=== PATIENT | male | born 1945 | race Caucasian/White ===

== ENCOUNTER → 2024-03-13 09:31 | Outpatient (REF) | payer MEDICARE, OTHER, SELFPAY ==
[2024-03-13 11:20] LABS: % Basophils 0.5 % (0-2); % Eosinophils 1.7 % (0-6); % Immature Granulocytes 0.3 % (0-0.5); % Lymphocytes 26.9 % (20.5-51.1); % Monocytes 10.1 % (1.7-9.3); % Neutrophils 60.5 % (42.2-75.2); Absolute Eosinophils 0.1 10^3/uL (0-0.7); Absolute Lymphocytes 2.1 10^3/uL (1.2-3.4); Absolute Monocytes 0.8 10^3/uL (0.1-0.6); Absolute Neutrophils 4.6 10^3/uL (1.4-6.5); Hematocrit 42.3 % (39.0-52.0); Hemoglobin 13.6 g/dL (13.0-18.0); Mean Corp Hgb Conc. 32.2 g/dL (33.0-37.0); Mean Corpuscular Hgb 26.3 pg (27.0-31.0); Mean Corpuscular Volume 81.7 fL (80.0-94.0); Mean Platelet Volume 10.2 fL (7.4-10.4); Nucleated Red Blood Cells % 0 % (-); Platelet Count 254 10^3/uL (130-400); Red Blood Cell Count 5.18 10^6/uL (4.70-6.10); Red Cell Dist. Width 14.5 % (11.5-14.5); White Blood Cell Count 7.6 10^3/uL (4.8-10.8)
[2024-03-13 11:45] LABS: ALT (SGPT) 19 U/L (0-50); AST (SGOT) 22 U/L (17-59); Alkaline Phosphatase 57 U/L (38-126); Blood Urea Nitrogen 23 mg/dl (9-20); Calcium 9.4 mg/dl (8.4-10.2); Carbon Dioxide 26 mmol/L (22-30); Chloride 101 mmol/L (98-107); Glucose 97 mg/dl (70-99); HDL Cholesterol 41 mg/dl; LDL Cholesterol, Calculated 105 mg/dl; Potassium 4.3 mmol/L (3.5-5.1); Sodium 136 mmol/L (135-145); Total Bilirubin 1.2 mg/dl (0.2-1.3); Total Cholesterol 162 mg/dl (50-199); Total Protein 6.6 g/dl (6.3-8.2); Triglyceride 80 mg/dl (10-149); Very Low Density Lipoprotein 16 mg/dl (0-30); eGFR 55.19
[2024-03-13 12:10] LABS: TSH Reflex To Free T4 3.61 uIU/ml (0.47-4.68)
[2024-03-13 12:29] LABS: Glycohemoglobin (HgbA1c) 5.6 % (4.0-5.6)
== END ==
LOC: HWLAB 09:31
PROVIDERS: ATTENDING PHYSICIAN Internal Medicine
DX: E78.5 Hyperlipidemia, unspecified (principal); I10 Essential (primary) hypertension; R73.01 Impaired fasting glucose; K59.00 Constipation, unspecified
CPT/HCPCS: 36415; 80053; 80061; 83036; 84443; 85025

== ENCOUNTER → 2024-11-08 10:44 | Outpatient (REF) | payer MEDICARE, OTHER, SELFPAY ==
[2024-11-08 12:57] LABS: Hematocrit 42.1 % (39.0-52.0); Hemoglobin 13.6 g/dL (13.0-18.0); Mean Corp Hgb Conc. 32.3 g/dL (33.0-37.0); Mean Corpuscular Volume 79.1 fL (80.0-94.0); Nucleated Red Blood Cells % 0 % (-); Platelet Count 301 10^3/uL (130-400); Red Cell Dist. Width 14.7 % (11.5-14.5)
[2024-11-08 13:00] LABS: Blood Urea Nitrogen 24 mg/dl (9-20); Calcium 10.4 mg/dl (8.4-10.2); Carbon Dioxide 28 mmol/L (22-30); Chloride 98 mmol/L (98-107); Glucose 106 mg/dl (70-99); Magnesium 2.1 mg/dl (1.6-2.3); Potassium 4.5 mmol/L (3.5-5.1); Sodium 133 mmol/L (135-145); eGFR 50.49
== END ==
LOC: HWLAB 10:44
PROVIDERS: ATTENDING PHYSICIAN Internal Medicine
DX: R55 Syncope and collapse (principal); M17.10 Unilateral primary osteoarthritis, unspecified knee; I10 Essential (primary) hypertension
CPT/HCPCS: 36415; 80048; 83735; 85025

== ENCOUNTER → 2025-01-15 11:07 | Outpatient (REF) | payer MEDICARE, OTHER, SELFPAY | LOC: HWRCS 11:07 | PROVIDERS: ATTENDING PHYSICIAN Internal Medicine | DX: Z01.810 Encounter for preprocedural cardiovascular examination (principal); M17.10 Unilateral primary osteoarthritis, unspecified knee; M47.816 Spondylosis without myelopathy or radiculopathy, lumbar region; R79.89 Other specified abnormal findings of blood chemistry | CPT/HCPCS: 78452; 93017; A9500; J2785 ==

== ENCOUNTER → 2025-01-29 09:06 | Outpatient (REF) | payer MEDICARE, OTHER, SELFPAY ==
[2025-01-29 12:48] LABS: ALT (SGPT) 19 U/L (0-50); AST (SGOT) 23 U/L (17-59); Albumin 4.4 g/dl (3.5-5.0); Alkaline Phosphatase 56 U/L (38-126); Blood Urea Nitrogen 20 mg/dl (9-20); Calcium 9.7 mg/dl (8.4-10.2); Carbon Dioxide 28 mmol/L (22-30); Chloride 99 mmol/L (98-107); Glucose 90 mg/dl (70-99); Potassium 4.7 mmol/L (3.5-5.1); Sodium 137 mmol/L (135-145); Total Protein 7.2 g/dl (6.3-8.2); eGFR > 60.00
[2025-01-29 12:53] LABS: Hematocrit 44.7 % (39.0-52.0); Hemoglobin 13.7 g/dL (13.0-18.0); Mean Corp Hgb Conc. 30.6 g/dL (33.0-37.0); Mean Corpuscular Volume 83.1 fL (80.0-94.0); Nucleated Red Blood Cells % 0 % (-); Platelet Count 290 10^3/uL (130-400); Red Cell Dist. Width 14.3 % (11.5-14.5)
== END ==
LOC: HWRAD 09:06
PROVIDERS: ATTENDING PHYSICIAN Internal Medicine Interventional Cardiology; FAMILY PHYSICIAN Internal Medicine
DX: E78.5 Hyperlipidemia, unspecified (principal); I10 Essential (primary) hypertension
CPT/HCPCS: 36415; 80053; 85025

== ENCOUNTER 2025-01-30 10:21 | Inpatient (IN) | payer MEDICARE, OTHER, SELFPAY ==
[2025-01-30] VITALS (22 sets, daily range): BP systolic 121–181; BP diastolic 57–123; BMI 33.6
[2025-01-30] MEDS: LOW STRENGTH ASPIRIN 81 MG PO (07:17)
[2025-01-30] MEDS: NSS 328 ML IV (07:19)
--- NOTE | 2025-01-30 09:25 | ITS.CL.CATH ---
Slitter Operator - Catheterization
Cardiac Catheterization
Procedure Report:
LEFT HEART CATHETERIZATION
Date of Procedure: January 30, 2025
Referring: Dr. Philip Macedo
PROCEDURES:
1. Left heart catheterization with coronary and single-plane left ventriculography
INDICATION: This is an 79-year-old gentleman who was scheduled for elective knee replacement and had a stress study that was notable for anterior ischemia. He is now referred for coronary angiography.
ACCESS: Right radial artery using ultrasound guidance and placement of 6 Swedish sheath
HEMODYNAMICS : (mmHg)
AO (s/d) : 144/64, 100
LV (s/d) : 156/4
LVEDP : 14
CORONARY FINDINGS: Three-vessel coronary calcification
DOMINANCE: Right
LEFT MAIN: Calcified 70% distal stenosis with ventricularization of pressure tracing upon engagement
LEFT ANTERIOR DESCENDIN% ostial stenosis with post stenotic dilation. The remainder of the LAD has diffuse luminal irregularities
CIRCUMFLEX: The circumflex is a moderate caliber dominant vessel. There is a 95% calcified ostial stenosis best seen in UZBEK 31/caudal 30 image. OM1 is a moderate caliber vessel that arises very proximally from the circumflex and has an 80% ostial
stenosis. OM2 is small. The circumflex terminates in a large posterolateral branch
RIGHT CORONARY ARTERY: The right coronary artery is moderate to heavily calcified with diffuse 30% mid RCA stenosis and focal 60% mid RCA stenosis. The mid to distal vessel has diffuse luminal irregularities but no focal obstructive stenosis.
There is a 50% narrowing just before the crux and the vessel. The PDA has a 40% mid stenosis
VENTRICULOGRAPHY: Left ventriculography is performed in an ANTHONY projection. The digital single-plane left ventricular ejection fraction is visually estimated at 50%
SEDATION: 36 minutes of procedural sedation was utilized. An independent medical assistant secretary was present to assist with and help manage the patient's level of consciousness and physiologic status.
RADIATION SUMMARY: Fluoro Time (min): 2.6, Dose (mGy): 506, DAP (Gy.cm2) : 36.8
Closure Device: TR band
CONCLUSIONS
1. Multivessel coronary artery disease involving left main, ostial LAD and ostial circumflex and mid RCA. Moderate to heavy coronary calcification
2. Preserved LV function
RECOMMENDATIONS
1. Consult CT surgery to consider coronary artery bypass graft with targets to LAD, OM1, posterolateral branch, and RCA
Copy to: Dr. Philip Macedo
--- NOTE | 2025-01-30 10:23 | PTCARENOTE ---
patient transferred to IVU (2250) for surgical consult post cath. awake and alert with spouse at bedside. right radial band present, air deflation in progress, report given to Vicki ZENG.
--- NOTE | 2025-01-30 10:28 | PTCARENOTE ---
Received patient from the systems testing laboratory technician, assisted to the bathroom and voided qs. Right radial band is dry and intact with a strong pulse, 3ml of air removed as ordered. Patient oriented to the room and plan of care, at the bedside, call cordoba in
reach.
--- NOTE | 2025-01-30 11:52 | CONSULT.CT ---
Consultation
-
Date/Time Consultation Requested: 01/30/25 at 0922
Date/Time Consultation Performed: 01/30/25 at 1150
Requesting Provider: TAWNYA Sequeira
Performing Provider: TAWNYA Ramos for Dr. Eloy Martinez
Reason for Consultation: CABG evaluation
Patient History
Physicians
Family Physician: Dr. Jenny Patel
Outpatient Orchard Worker: Dr. Philip Smith
Inpatient Orchard Worker: [facility]
History of Present Illness
Mr. Brad Mcdaniels is an 79-year-old male with a PMHx of HTN, HLD and prior orthopedic procedures who presented today for [facility] following abnormal stress test revealing anterior ischemia. Patient reported he underwent a stress test to attain cardiac
clearance prior to undergoing an orthopedic surgery on his right knee. His last TTE (08/31/14) reported LVEF 55-60%, moderate LVH, mild MR, mild TR with mild PHT (PASP 35-40, RA pressure 5-10), mildly dilated aorta measuring 3.7 cm at sinus of
Valsalva and proximal ascending aorta is 3.5 cm. An updated TTE is ordered and awaiting to be obtained. Today, [facility] (01/30/25) with Dr. Luis reported multivessel CAD involving LM, ostial LAD, and ostial circumflex and mid RCA with moderate to heavy
coronary calcification and preserved LV function. Cardiothoracic surgery was consulted in consideration for CABG.
Due to his right knee discomfort, Mr. Mcdaniels reports that his mobility has been limited over the last 6-months. He reports an average of 1K steps per day. He is independent with his ADL's and still drives regularly. He intermittently will use a
single point cane due to his R knee discomfort, but not routinely. He denies any history of chest pain, chest tightness, shortness of breath, orthopnea, dyspnea, ABD distention, edema, or palpitations. He reports he has had a prior syncopal episode
2-years ago during a which led to a 2-day hospitalization at [facility]. He reported at that time, he was fasting on a keto-diet which he attributed to be the cause. He reporting establishing care with Dr. Smith at that time in
which his blood pressure medication was decreased and no other syncope has occurred.
Past Medical History
Past Medical History: HTN and Hypercholesterolemia
Past Surgical History
Past Surgical History: Orthopedic ( )
R Elbow Fx - ORIF (2009)
R Rotator cuff tear (2009)
L2-5 Laminectomy, L1-L2 Hemilaminectomy, Facetectomy Left L2-L3 Redo Laminectomy, Redo Discectomy L (2018, Dr. Irving Meehan)
Bilateral Cataract
Family History
Mother: at Age (70's) and Cause of (Bladder Ca)
Father: at Age (90's) and Cause of (Alzheimer's Disease)
Social History
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
Drug: None
Tobacco: Former Smoker (1-2 ppd for 20 years, quit in 40's)
Personal:
Living: With Spouse
Allergies
Allergy/AdvReac Type Severity Reaction Status Date / Time
Penicillins Allergy Hives/swell Verified 02/15/18 06:25
ing
Home Medications
�Medication �Instructions �Recorded �Confirmed �Type
amlodipine 2.5 mg tablet 2.5 mg PO DAILY 01/30/25 01/30/25 History
aspirin 81 mg tablet,delayed 81 mg PO DAILY 01/30/25 01/30/25 History
release
irbesartan 150 mg tablet 150 mg PO DAILY 01/30/25 01/30/25 History
simvastatin 40 mg tablet 40 mg PO DAILY 01/30/25 01/30/25 History
Review of Systems
-
History Source: Patient
General: Reports No Symptoms
HEENT: Reports No Symptoms
Respiratory: Reports No Symptoms
Cardiac: Reports No Symptoms
Abdomen/GI: Reports No Symptoms
: Reports No Symptoms
Musculoskeletal: Reports Joint Pain (R knee)
Skin: Reports No Symptoms
Neurological: Reports No Symptoms
Vascular: Reports No Symptoms
Physical Exam
Vital Signs
Temp 97.7 F 01/30/25 10:30
Temp route: Oral 01/30/25 10:30
Pulse 54 01/30/25 11:30
Resp Rate 16 01/30/25 10:30
Blood pressure 134/66 01/30/25 11:13
Blood pressure extremity used: Left upper arm 01/30/25 10:30
Position: Lying 01/30/25 10:30
MAP (cuff-Asim Monitor) 86 01/30/25 11:13
SaO2 100 01/30/25 11:30
Oxygen Mode of Delivery Room air 01/30/25 10:30
Can the patient verbally communicate their pain? Yes 01/30/25 10:57
Actual Weight 109.2 kg 01/30/25 06:39
Body Mass Index (BMI) 33.6 01/30/25 06:39
Exam
General: Well Developed and Well Nourished
HEENT: Normocephalic, Atraumatic and EOMI
Respiratory: Clear
Cardiac: S1/S2
GI: Soft, Non Tender and Non Distended
Skin: Warm and Dry
Neuro: AO x 3
Extremities: Pulses (+2 DP/PT/Radial Bilaterally)
Psych: Calm
Assessment / Plan
-
#Coronary Artery Disease
- Pt presented for elective LHC following abnormal outpatient stress test, found to have multivessel CAD
- CTS consulted for CABG evaluation
- Surgical case will be discussed and reviewed with attending physician, Dr. Eloy Martinez. Further details regarding surgical timing will be determined after surgeons full evaluation.
- Routine preoperative cardiothoracic surgery orders will be, including:
- CT Chest
- Carotid Artery Ultrasound
- Bedside PFT's
- Labwork, including Type & Screen
- Anesthesia Consult
- STS risk stratification score will be calculated after preoperative testing is complete.
- Continue medical management per primary team.
--- NOTE | 2025-01-30 13:45 | CM ---
Chart reviewed. Patient is independent of ADLS, lives with his in a 3 [address], 2 [facility], ambulates with a SPC due to a bad knee. Reviewed preoperative and postoperative instructions and restrictions, along with showering guidelines. Gave patient
Cardiac Surgery Book. Patient is agreeable to a home visit by CT Transitional RN. Plan is for the patient to return home with CT Transitional RN. CM to follow
--- NOTE | 2025-01-30 15:38 | W.PN.UPDATE ---
Update Note
Progress Note Update
CARDIAC SURGERY ATTENDING:
It was my pleasure to evaluate Mr. Brad Mcdaniels for surgical coronary revascularization. I have reviewed his cardiac catheterization images as well as his medical history and other preoperative studies. I believe he will benefit from surgical
coronary revascularization. I anticipate JERZY to LAD, greater saphenous vein to OM1, greater saphenous vein to terminal L PLB, and greater saphenous vein to RPDA. I recommended concurrent exclusion of his left atrial appendage. I had a long
conversation with this patient and his family. We reviewed his pathology, discussed the proposed operative interventions, reviewed the periprocedural risks (including, but not limited to, , stroke, CO, arrhythmia, PNA, JAY/F, bleeding, and
infection), discussed expected in-hospital postprocedural course, and reviewed the expected outpatient recovery. All questions were answered to the best of my abilities. The patient is agreeable to proceed. He has been tentatively scheduled for
his procedure tomorrow 01/31/2025.
Thank you for the opportunity participate in the care of this kind gentleman.
Please call with any questions or concerns.
Eloy Martinez MD
[phone]
--- NOTE | 2025-01-30 16:46 | PTCARENOTE ---
Patient now scheduled for CT surgery tomorrow. Patient seen by anesthesia and surgeon. Sent for CT of the chest and U/S, now having echo. BP elevated TT to [place] Peace ACUPUNCTURIST, now that norvasc and avapro were placed on hold by surgery. She will discuss
with Dr. Luis but no plans for heparin gtt as per Dr. Luis. Patient sent for echo. Dressing right wrist is dry and intact, patient denies any pain, family waiting in the room.
[2025-01-30 16:56] LABS: APTT 29.1 Sec (23.4-35.0); INR 0.94; PT 12.9 Sec (11.4-14.6)
[2025-01-30] MEDS: LIPITOR 80 MG PO (17:46)
--- NOTE | 2025-01-30 18:01 | W.PN.UPDATE ---
Update Note
Progress Note Update
Procedure Type:�Isolated CABG
Perioperative Outcome Estimate %
Operative Mortality 1.34%
Morbidity & Mortality 5.84%
Stroke 0.479%
Renal Failure 0.93%
Reoperation 1.72%
Prolonged Ventilation 3.15%
Deep Sternal Wound Infection 0.123%
Long Hospital Stay (>14 days) 3.98%
Short Hospital Stay (<6 days)* 46.4%
*higher values reflect a better outcome
Clinical Summary
Planned Surgery: Isolated CABG, Urgent, First cardiovascular surgery
Demographics: 79 year old, male, 109kg, 180cm, BMI: 33.6 kg/m�
Lab Values: Creatinine: 1.2 mg/dL, Hematocrit: 44%, WBC Count: 9.2 10�/�L, Platelet Count: 033750 cells/�L
PreOp Medications: JENNIFER Inhibitors/ARBs <=48 hrs
Substance Abuse: Former smoker
Risk Factors / Comorbidities: Hypertension
Pulmonary RF: Mild CLD
�
--- NOTE | 2025-01-30 19:30 | PTCARENOTE ---
Received pt @ change of shift. AAOx3, BP 165/62, other VSS-- NSR on monitor. Right radial site clean, dry, and intact. No ecchymosis, swelling or hematoma present. Family bedside. Discussed plan of care. Pt verbalizes understanding. Call cordoba within
reach.
--- NOTE | 2025-01-30 21:49 | PTCARENOTE ---
CVOR prep completed. Pt arms, chest, stomach, groins, legs front and back to ankles clipped. CHG bath completed. Sheets changed, bedside, rails and call cordoba wiped down. Informed RADHA Moulton, that prep was completed-- verified
preparation. Discussed plan of care for morning, and being NPO @ midnight. PT verifies understanding. Call cordoba within reach.
[2025-01-30] MEDS: APRESOLINE 10 MG IV (22:24)
[2025-01-31] VITALS (18 sets, daily range): BP systolic 94–164; BP diastolic 45–126; BMI 32.8
--- NOTE | 2025-01-31 02:58 | DOWNTIME ---
There was a [employer] Client Technology Program Manager Downtime on 01/31/2025 from 0100 to 01/31/2025 at 0255. Downtime documentation of patient's care, including medication administrations, has been reconciled in the electronic record per guidelines. Refer to the
patient's paper chart under the miscellaneous tab to see printed paper medication records and downtime forms.
[2025-01-31 05:21] LABS: Hematocrit 39.5 % (39.0-52.0); Hemoglobin 13.0 g/dL (13.0-18.0); Mean Corp Hgb Conc. 32.9 g/dL (33.0-37.0); Mean Corpuscular Volume 79.8 fL (80.0-94.0); Platelet Count 251 10^3/uL (130-400); Red Cell Dist. Width 14.2 % (11.5-14.5)
[2025-01-31] MEDS: LOPRESSOR 25 MG PO (06:07)
[2025-01-31 06:08] LABS: ALT (SGPT) 18 U/L (0-50); AST (SGOT) 21 U/L (17-59); Albumin 3.8 g/dl (3.5-5.0); Alkaline Phosphatase 60 U/L (38-126); Blood Urea Nitrogen 18 mg/dl (9-20); Calcium 9.3 mg/dl (8.4-10.2); Carbon Dioxide 24 mmol/L (22-30); Chloride 105 mmol/L (98-107); Estimated Creatinine Clearance 60 ml/min; Glucose 95 mg/dl (70-99); HDL Cholesterol 37 mg/dl; LDL Cholesterol, Calculated 89 mg/dl; Potassium 4.3 mmol/L (3.5-5.1); Sodium 132 mmol/L (135-145); Total Protein 6.6 g/dl (6.3-8.2); Very Low Density Lipoprotein 18 mg/dl (0-30); eGFR > 60.00
[2025-01-31] MEDS: PROTONIX 40 MG PO (06:09)
[2025-01-31] MEDS: BACTROBAN 2% OINTMENT 1 APPLIC NASAL ×2 (06:09→21:22)
[2025-01-31] MEDS: MAGNESIUM OXIDE 400 MG PO (06:09)
--- NOTE | 2025-01-31 06:42 | PTCARENOTE ---
Pre-op prep completed. Bloodwork completed. Weight measured. Vitals taken, Bilat pressures. 2nd CHG bath completed. CHG wipes completed. Monitor leads placed on back. Switched to CVICU bed. CVOR Handoff report/SBAR completed. Belongings brought to
2261. Medications given-- see MAY. Antibiotics held and sent (Vancocin and Aztreonam). Equipment from CVICU on bed with oxygen tank, ambu bag, and chart-- includes H&P, anesthesia consult, signed consent, copies of tests, two namebands, and CVOR
SBAR included.. Seen by Dr. Martinez.
[2025-01-31 07:43] LABS: ACT+ - POC 109 Seconds (82-134)
[2025-01-31 07:53] LABS: Urine Character Slightly Cloudy (Clear)
[2025-01-31 08:08] LABS: Urine Red Blood Cell 0-2 /HPF (0-2)
[2025-01-31 08:46] LABS: Glycohemoglobin (HgbA1c) 5.5 % (4.0-5.9)
[2025-01-31 10:07] LABS: ACT+ - POC 692 Seconds (82-134)
[2025-01-31 10:27] LABS: B.E. - POC -2.0 mmol/L; Glucose - POC 104 mg/dl (70-99); HCO3 - POC 23 mmol/L (21-28); Hematocrit - POC 34 % PCV (42-52); Hemodilution- POC No; Hemoglobin Calculated - POC 11.4; Ionized Calcium - POC 1.24 mmol/L (1.15-1.33); Lactate - POC 0.39 mmol/L (0.36-0.75); O2 Saturation %Calculated-POC 99.9 % (94-98); PCO2 - POC 39 mmHg (35-48); PO2 - POC 279 mmHg (83-108); POC Comment PRE; Potassium - POC 3.9 mmol/L (3.5-5.1); Sodium - POC 135 mmol/L (136-145); Specimen Type - POC Arterial; pH - POC 7.38 (7.35-7.45)
[2025-01-31 10:37] LABS: ACT+ - POC 619 Seconds (82-134)
[2025-01-31 10:55] LABS: B.E. - POC 1.0 mmol/L; Glucose - POC 129 mg/dl (70-99); HCO3 - POC 25 mmol/L (21-28); Hematocrit - POC 31 % PCV (42-52); Hemodilution- POC Yes; Hemoglobin Calculated - POC 10.4; Ionized Calcium - POC 1.07 mmol/L (1.15-1.33); Lactate - POC 0.89 mmol/L (0.36-0.75); O2 Saturation %Calculated-POC 100.0 % (94-98); PCO2 - POC 39 mmHg (35-48); PO2 - POC 409 mmHg (83-108); POC Comment CPB; Potassium - POC 5.5 mmol/L (3.5-5.1); Sodium - POC 134 mmol/L (136-145); Specimen Type - POC Arterial; pH - POC 7.43 (7.35-7.45)
[2025-01-31 11:04] LABS: ACT+ - POC 487 Seconds (82-134)
[2025-01-31 11:18] LABS: ACT+ - POC 635 Seconds (82-134)
[2025-01-31 11:30] LABS: B.E. - POC 0.1 mmol/L; Glucose - POC 161 mg/dl (70-99); HCO3 - POC 24 mmol/L (21-28); Hematocrit - POC 31 % PCV (42-52); Hemodilution- POC Yes; Hemoglobin Calculated - POC 10.4; Ionized Calcium - POC 1.11 mmol/L (1.15-1.33); Lactate - POC 0.87 mmol/L (0.36-0.75); O2 Saturation %Calculated-POC 99.8 % (94-98); PCO2 - POC 37 mmHg (35-48); PO2 - POC 224 mmHg (83-108); POC Comment CPB; Potassium - POC 5.6 mmol/L (3.5-5.1); Sodium - POC 135 mmol/L (136-145); Specimen Type - POC Arterial; pH - POC 7.43 (7.35-7.45)
[2025-01-31 11:38] LABS: ACT+ - POC 505 Seconds (82-134)
[2025-01-31 11:51] LABS: B.E. - POC -2.7 mmol/L; Glucose - POC 121 mg/dl (70-99); HCO3 - POC 22 mmol/L (21-28); Hematocrit - POC 31 % PCV (42-52); Hemodilution- POC Yes; Hemoglobin Calculated - POC 10.7; Ionized Calcium - POC 1.08 mmol/L (1.15-1.33); Lactate - POC 1.07 mmol/L (0.36-0.75); O2 Saturation %Calculated-POC 99.9 % (94-98); PCO2 - POC 36 mmHg (35-48); PO2 - POC 312 mmHg (83-108); POC Comment WARM; Potassium - POC 4.5 mmol/L (3.5-5.1); Sodium - POC 138 mmol/L (136-145); Specimen Type - POC Arterial; pH - POC 7.39 (7.35-7.45)
[2025-01-31 12:02] LABS: ACT+ - POC 584 Seconds (82-134)
[2025-01-31 12:38] LABS: B.E. - POC -0.8 mmol/L; Glucose - POC 123 mg/dl (70-99); HCO3 - POC 23 mmol/L (21-28); Hematocrit - POC 32 % PCV (42-52); Hemodilution- POC Yes; Hemoglobin Calculated - POC 10.9; Ionized Calcium - POC 1.12 mmol/L (1.15-1.33); Lactate - POC 1.63 mmol/L (0.36-0.75); O2 Saturation %Calculated-POC 99.9 % (94-98); PCO2 - POC 36 mmHg (35-48); PO2 - POC 278 mmHg (83-108); POC Comment WARM; Potassium - POC 4.8 mmol/L (3.5-5.1); Sodium - POC 138 mmol/L (136-145); Specimen Type - POC Arterial; pH - POC 7.42 (7.35-7.45)
[2025-01-31 12:44] LABS: ACT+ - POC 109 Seconds (82-134)
[2025-01-31 12:54] LABS: B.E. - POC -4.1 mmol/L; Glucose - POC 121 mg/dl (70-99); HCO3 - POC 20 mmol/L (21-28); Hematocrit - POC 29 % PCV (42-52); Hemodilution- POC Yes; Hemoglobin Calculated - POC 9.7; Ionized Calcium - POC 1.22 mmol/L (1.15-1.33); Lactate - POC 1.94 mmol/L (0.36-0.75); O2 Saturation %Calculated-POC 99.8 % (94-98); PCO2 - POC 34 mmHg (35-48); PO2 - POC 217 mmHg (83-108); POC Comment POST; Potassium - POC 4.2 mmol/L (3.5-5.1); Sodium - POC 138 mmol/L (136-145); Specimen Type - POC Arterial; pH - POC 7.39 (7.35-7.45)
--- NOTE | 2025-01-31 13:07 | W.CVOR.SURPR ---
CVOR Surgeon Immed Pre Op
-
I have examined this patient prior to performance of the scheduled procedure.
The patient's condition is unchanged from the time of the dictated/written History and
Physical and the patient is able to undergo the scheduled procedure.
--- NOTE | 2025-01-31 13:07 | W.IMMPOSTOP ---
Addendum entered and electronically signed by Eloy Martinez MD 01/31/25 14:31:
[id number]
Original Note:
Surgical Immed Post Op Note
-
CARDIAC SURGERY OPERATIVE NOTE:
Preoperative Dx:
MVCAD including LM disease
Postoperative Dx:
Same
Procedures:
1) Median sternotomy
2) Takedown of JERZY (narrow pedicle)
3) Endoscopic harvest/prep of RLE GSV
4) CABG x 4 (JERZY to LAD, GSV to D1, GSV to LPLB, GSV to RPDA)
5) ELAA (35mm AtriClip)
Surgeon:
Eloy Martinez M.D.
Assistants:
Dangelo CalixtoAFranky-CFranky; printing assistant throughout, [id number] sternotomy closure
Dangelo MadridA.-CFranky; endoscopic harvest/prep of RLE GSV, closure of RLE incisions, [id number] sternotomy closure
Caprice Schwarz.-CFranky; assisted w/ endoscopic RLE GSV harvest
Anesthesia:
James Roberts M.D. and Aura GonzalezN.A.
Perfusion:
Mana Cotton, C.C.P.; CPB: 131min, XC: 83min
Findings:
JERZY was a very healthy and good sized vessel (ELD 3.25mm) w/ extremely brisk blood flow
GSV was a healthy conduit w/ ELD 3.5mm
LAD was visible on the epicardial surface, scant scattered calcifications, normal gutierrez at midpoint anastomotic site, ELD 3.00mm
D1 was visible on the epicardial surface, it covered an anterior lateral distribution, scant scattered calcifications, ELD 2.75mm
L PLB was visible on the epicardial surface, scant scattered calcifications, slightly thickened gutierrez, ELD 3.25mm
R PDA was visible on the epicardial surface, scant scattered calcifications, normal gutierrez, ELD 2.50mm
OM1 was intramyocardial and not significantly calcified making identification challenging - it appeared to be running in a similar course as D1 - bypass not performed
CHERRI was small w/ 'windsock' morphology - successfully occluded at its base w/ a 35mm AtriClip - confirmed w/ postoperative AUSTYN
Excellent flow in all grafts w/ postoperative transit-time U/S flow-probe assessment
Post-AUSTYN: Normal biventricular function, no significant VHD, CHERRI confirmed excluded
Pt. w/ preoperative sinus bradycardia in 40s under GA, postoperatively continued bradycardia in 30s - bipolar V-wire placed - paced at 70.
Complications:
None
Transfusions:
None
Implants:
35mm AtriClip - LOT [id number]
Epicardial bipolar V-wire x 1
CT x 4 (B/L pleural, inferior mediastinal, superior mediastinal)
Sternal wires x 8
Sternal 'X' plate w/ 8 - 14mm screws
Sternal 'Square' plate w/ 4 - 12mm screws
Condition:
71 V-paced (bradycardic sinus under), 109/63, CVP 20, 100%
GTTS: insulin 1, levophed 3, precedex 0.5
Stable/guarded to CVICU
[2025-01-31] MEDS: TYLENOL PO (13:10)
[2025-01-31] MEDS: NEURONTIN PO ×2 (13:10→15:07)
[2025-01-31 13:55] LABS: Glucose - Point of Care 129 mg/dl (70-99)
[2025-01-31 14:04] LABS: Hematocrit 34.0 % (39.0-52.0); Hemoglobin 11.5 g/dL (13.0-18.0); Platelet Count 213 10^3/uL (130-400)
[2025-01-31] MEDS: AZACTAM 2000 MG IV ×2 (14:06)
[2025-01-31] MEDS: STERILE WATER FOR INJECTION 10 ML IV ×2 (14:06)
[2025-01-31] MEDS: NSS 500 IV (14:06)
[2025-01-31 14:09] LABS: B.E. -3.4 mmol/L; HCO3 21.4 mmol/L (21-28); O2 Saturation % 98.4 % (94-98); PCO2 37 mmHg (35-48); PO2 89 mmHg (83-108); Potassium 4.5 mMOL/L (3.5-5.1); Sodium 134 mMOL/L (136-145)
[2025-01-31 14:11] LABS: INR 1.28; PT 16.5 Sec (11.4-14.6)
[2025-01-31 14:12] LABS: APTT 30.1 Sec (23.4-35.0)
[2025-01-31 14:21] LABS: Blood Urea Nitrogen 17 mg/dl (9-20); Estimated Creatinine Clearance 65 ml/min; Glucose 127 mg/dl (70-99); Magnesium 3.0 mg/dl (1.6-2.3)
--- NOTE | 2025-01-31 14:22 | CM ---
Chart reviewed. Patient is in the OR today. Patient is independent of ADLS, lives with his in a 3 STH, 2 [place], ambulates with a SPC 2/2 his knee. Plan is for the patient to return home with CT Transitional RN. CM to follow
--- NOTE | 2025-01-31 14:36 | PTCARENOTE ---
Patient received from CVOR s/p CABG x 4/LAAL. RIJ Cordis w/SLIC catheter, transducing CVP, L radial arterial lines present - leveled, flushed, and calibrated w/good waveforms returned. Epicardial V-wire, placed to back up rate 30bpm. Mediastinal
chest tubes x 2, Y-connected to pleurevac, L and R pleural chest tubes, Y-connected to separate collection chamber - both placed to -20cm suction w/no air leaks appreciated. Hutchison catheter to gravity. All procedural sites stable. JAMIL Whittaker to
bedside, updated to appearance of RSVG site, states unchanged from prior. See work list for full assessment, interventions performed, and intravenous infusion rates and titrations.
--- NOTE | 2025-01-31 14:56 | CON.INTV ---
Consultation
Consultation Request
Date/Time Consultation Requested: 01/31/2025
Date/Time Consultation Performed: 01/31/2025
Medical History
-
Chief Complaint: CAD
History of Present Illness:
Patient is 79-year-old gentleman with history of hypertension and hyperlipidemia who had an abnormal stress test as an outpatient. This was followed by left heart catheterization which was suggestive of multivessel coronary artery disease. Patient
was subsequently referred to cardiothoracic surgery and was advised to pursue coronary artery bypass graft. Patient was admitted to the hospital for elective coronary artery bypass graft and postprocedure was admitted to cardiovascular ICU.
Duplex Trimmer consultation was requested for further input.
Past Medical History
Past Medical History: HTN and Hypercholesterolemia
Past Surgical History
Past Surgical History: Orthopedic ( )
R Elbow Fx - ORIF (2009)
R Rotator cuff tear (2009)
L2-5 Laminectomy, L1-L2 Hemilaminectomy, Facetectomy Left L2-L3 Redo Laminectomy, Redo Discectomy L (2018, Dr. Irving Meehan)
Bilateral Cataract
Family History
Mother: at Age (70's) and Cause of (Bladder Ca)
Father: at Age (90's) and Cause of (Alzheimer's Disease)
Social History
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
Drug: None
Tobacco: Former Smoker (1-2 ppd for 20 years, quit in 40's)
Personal:
Living: With Spouse
Allergies / Home Medications
Allergies
Allergy/AdvReac Type Severity Reaction Status Date / Time
Penicillins Allergy Hives/swell Verified 02/15/18 06:25
ing
Home Medications
�Medication �Instructions �Recorded �Confirmed �Last Taken �Type
amlodipine 2.5 mg tablet 2.5 mg PO DAILY Blood Pressure 01/30/25 01/30/25 01/29/25 10:00 History
aspirin 81 mg tablet,delayed 81 mg PO DAILY Blood Clot 01/30/25 01/30/25 01/29/25 10:00 History
release Prevention/Tx
irbesartan 150 mg tablet 150 mg PO DAILY Blood Pressure 01/30/25 01/30/25 01/29/25 10:00 History
simvastatin 40 mg tablet 40 mg PO DAILY High Cholesterol 01/30/25 01/30/25 01/29/25 10:00 History
Review of Systems
-
Unable to Obtain full review of systems at this time due to: Patient Intubation
Vitals / Labs / Diagnostic Testing
Vital Signs
Temp Pulse Resp BP Pulse Ox
97.5 F 55 16 164/65 97
01/31/25 14:00 01/31/25 14:00 01/31/25 14:00 01/31/25 06:08 01/31/25 14:33
Lab Data
01/31/25 13:53
Laboratory Results
01/30/25 01/31/25
16:35 13:53
PT 12.9 16.5 H
INR 0.94 1.28
APTT 29.1 30.1
pH 7.37
pCO2 37
pO2 89
HCO3 21.4
O2 Delivery Level Not Reportable
Diagnostic Testing:
Physical Exam
-
HEENT: Normocephalic
Cardiovascular: S1/S2
Respiratory: Clear and Non-Labored Respirations
GI: Soft and Non Distended
Neurology: Other (Sedated on Precedex)
Skin: Warm
General: Comfortable
Assessment
-
79-year-old gentleman with multivessel coronary artery disease, s/p coronary artery bypass graft and left atrial appendage exclusion, POD # 0
Titrate off pressors per protocol, blood pressure 118/54, currently on Levophed at 2.
ECHO reviewed with normal systolic function.
Management of chest tubes per primary service
Intubated/sedated, initiate SAT when able
Pain control
RASS goal of 0 to -1
Intubated for procedure, SBT trial when patient able to spontaneously breath
Current vent settings: SIMV, 500/16/40%/5, pressure support of 5. Current respiratory rate 16. Saturating 96%. Work of breathing normal.
AB.30
CXR with no obvious opacities/infiltrates, no pneumothorax.
Extubate per protocol
Maintain supplement oxygen as needed
No prior known history of pulmonary disease
Spirometry reviewed, unremarkable
Can add nebulizers if needed
Aspiration precautions
Encouraged incentive spirometry, OOB/ambulation/early mobility
Advance diet as tolerated following extubation
GI prophylaxis: Protonix
Monitor critical I/O's
Hutchison/chest tube output
Hb/platelets postoperatively, mild drift
Trend CBC for now
Can transfuse if indicated for Hb <7, plt <50 in surgical patients
DVT prophylaxis including SCDs
Insulin protocol initiated and ongoing
Transition to SQ/off as indicated per team
Other medical diagnoses:
- HTN
- HLD
Critical Care time [61] mins -- The patient is admitted for acute critical illness for the treatment of vital organ failure and/or prevention of further life-threatening conditions. Total care includes time spent in review of history, physical exam,
medications, hemodynamic/ventilator parameters, laboratory data, imaging and discussion with house staff, pharmacy, respiratory therapy, lead military analyst, and nursing
Data:
Spirometry 01/2025: Normal spirometry without evidence of obstruction or restriction, FEV1 94%.
ECHO 01/2025: 1. Normal left ventricular size and function. No regional wall motion abnormalities. The estimated ejection fraction is 59% by Kapoor's method of disc. Normal diastolic function.
2. Trileaflet aortic valve. The aortic valve is sclerotic but not stenotic. No aortic insufficiency.
3. Trace mitral valve regurgitation.
4. Trace tricuspid regurgitation.
5. When compared to the most recent echocardiogram from 08/31/2014 there has been no significant change.
C 01/2025: 1. Multivessel coronary artery disease involving left main, ostial LAD and ostial circumflex and mid RCA. Moderate to heavy coronary calcification
2. Preserved LV function
Lexiscan 01/2025: Abnormal stress test
Negative ECG for ischemia given the pharmacological study.
Moderate sized apical, mid anterior mid anteroseptal defect predominantly reversible which may be consistent with ischemia
Systolic function is normal. The ejection fraction is 58%.
Stress Risk is moderate risk study (1 - 3% [place] or /year)
CT Chest 01/2025: Mild dependent atelectasis in the posterior lungs. The lungs appear otherwise clear.
Mild to moderate calcification of the aortic arch and descending thoracic aorta with no aneurysm.
Coronary artery calcifications.
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
Bony degenerative changes as described.
[2025-01-31 14:59] LABS: Glucose - Point of Care 158 mg/dl (70-99)
[2025-01-31] MEDS: DILAUDID 0.5 MG IV (15:03)
[2025-01-31] MEDS: PACERONE PO (15:07)
[2025-01-31] MEDS: OFIRMEV 100 IV (15:49)
[2025-01-31 16:00] LABS: Glucose - Point of Care 118 mg/dl (70-99)
[2025-01-31] MEDS: LR 250 ML IV ×3 (16:25→19:31)
[2025-01-31] MEDS: ZOFRAN 4 MG IV (16:44)
[2025-01-31 17:01] LABS: Glucose - Point of Care 115 mg/dl (70-99)
[2025-01-31] MEDS: LIPITOR PO (17:06)
[2025-01-31 17:08] LABS: B.E. -2.9 mmol/L; HCO3 22.0 mmol/L (21-28); O2 Saturation % 99.2 % (94-98); PCO2 38 mmHg (35-48); PO2 151 mmHg (83-108); Potassium 4.7 mMOL/L (3.5-5.1)
[2025-01-31] MEDS: ROXICODONE 5 MG PO (17:22)
--- NOTE | 2025-01-31 17:22 | RESPNOTE ---
pt extubated at 1715 to 6L nasal cannula, 02 sats of 100% noted
--- NOTE | 2025-01-31 17:25 | PTCARENOTE ---
Patient displayed spontaneous breaths above ventilator settings. CPAP wean initiated. No apnea noted, good TV maintained. ABG sent, results conveyed to EDEL Emmett. Patient extubated to 6lnc w/out incident, SaO2 @ 99%.
--- NOTE | 2025-01-31 17:27 | W.PN.CARDCBS ---
Today's Communication / Plan
-
Postop care
Impression / Plan
-
Parking Meter Collector: Hellen
Assessment:
Abnormal stress test
MV CAD
CABG x 4 (01/31/25 JERZY to LAD, GSV to D1, GSV to LPLB, GSV to RPDA) and ELAA
HTN
HLD
Assessment:
-Underwent left heart catheterization 01/30/2025 which was performed for abnormal stress test and showed multivessel coronary disease
-Patient subsequently underwent CABG x 4 on 01/31/25
-Postop he was seen in the CVICU where he was intubated and sedated
-Maintaining sinus rhythm on review of telemetry
-Warm and well-perfused on physical exam
-Normal LVEF based on IntraOp AUSTYN
-Agree with current cardiac meds�aspirin/Plavix, high intensity statin, beta-bin and amiodarone to maintain sinus rhythm
-Eventual cardiac rehab
Progress Note - Parking Meter Collector
Subjective
Date of Service: January 31, 2025
Underwent CABG earlier today. Seen postoperatively in the CVICU where he remains intubated and sedated.
Objective
Labs:
01/31/25 13:53
Labs
Hgb 11.5 g/dL (13.0-18.0) L 01/31/25 13:53
Hct 34.0 % (39.0-52.0) L 01/31/25 13:53
Plt Count 213 10^3/uL (130-400) 01/31/25 13:53
PT 16.5 Sec (11.4-14.6) H 01/31/25 13:53
INR 1.28 01/31/25 13:53
APTT 30.1 Sec (23.4-35.0) 01/31/25 13:53
Sodium 132 mmol/L (135-145) L 01/31/25 05:03
Potassium 4.3 mmol/L (3.5-5.1) 01/31/25 05:03
BUN 17 mg/dl (9-20) 01/31/25 13:53
Creatinine 1.1 mg/dL (0.7-1.3) 01/31/25 13:53
Glucose 127 mg/dl (70-99) H 01/31/25 13:53
Vital Signs and I&O:
Vital Signs
Temp Pulse Resp BP Pulse Ox
97.7 F 59 18 112/54 99
01/31/25 17:00 01/31/25 17:02 01/31/25 17:00 01/31/25 17:00 01/31/25 17:02
Vital Signs
Temp Pulse Resp BP Pulse Ox
97.7 F 59 18 112/54 99
01/31/25 17:00 01/31/25 17:02 01/31/25 17:00 01/31/25 17:00 01/31/25 17:02
Intake & Output
01/29/25 01/30/25 01/31/25 02/01/25
06:59 06:59 06:59 06:59
Intake Total 1080 / 1080 134.5 / 134.5
Output Total 200 / 200 465 / 465
Balance 880 / 880 -330.5 / -330.5
Physical Exam
Physical Exam
Gen: NAD
HEENT: NC/AT, sclera anicteric
Neck: No JVD
CV: RRR, NL s1/s2, no M/R/G
Lungs: Mechanically ventilated. Chest tubes with sanguineous drainage.
Abd: S/ND
: Hutchison with tao urine.
Ext: No LE edema
Skin: Warm, dry. Sternotomy CDI.
Neuro: Non-focal
[2025-01-31 18:04] LABS: Glucose - Point of Care 115 mg/dl (70-99)
[2025-01-31] MEDS: FLEXERIL 5 MG PO (18:12)
[2025-01-31 18:23] LABS: Hematocrit 36.0 % (39.0-52.0); Hemoglobin 12.1 g/dL (13.0-18.0); Platelet Count 269 10^3/uL (130-400)
[2025-01-31] MEDS: LOW STRENGTH ASPIRIN 81 MG PO (19:03)
[2025-01-31 19:59] LABS: B.E. -2.3 mmol/L; HCO3 22.5 mmol/L (21-28); O2 Saturation % 99.3 % (94-98); PCO2 38 mmHg (35-48); PO2 110 mmHg (83-108); Potassium 4.7 mMOL/L (3.5-5.1)
[2025-01-31 20:00] LABS: Glucose - Point of Care 106 mg/dl (70-99)
--- NOTE | 2025-01-31 20:00 | PTCARENOTE ---
Report received from KARRI Flores. Walking rounds done at 191. Pt drowsy yet easily arouses to voice. Speech clear. Oriented x 4. Equal strength x 4 to simple commands, yet generally weak. Pt on 4L/NC. Sats 99%. BBS present. Decreased to B bases and
anteriorly throughout. Pt in SB, rate 50's. Levo gtt at 3 mcg/min. Maintaining MAP > 65, SBP 90-130 mmHG. Audible heart tones. V wire to temporary pacer, VVI rate 30, mA 15, sens 0.8. Weak, yet palpable pulses to B radials and DPs. CT x 4, to -20 cm
suction. Sanguinous drainage. No air leak, no tidaling, no crepitus. For wound assessments, see flowsheets. Belly soft, nontender. Hypoactive bs x 4. ASA given as ordered. See MAY. Hutchison draining clear, yellow urine. Hourly urine and CT outputs
recorded. Glycemic protocol maintained.
At ~ 1925, pt heart rate down to 38-40's. SBP down to 75. Attempted to V pace pt at 50, yet SBP to 60's. PA at bedside. Levo gtt up to 4 mcg/min. LR 250 mls given per order. Pt her back to SB 50's intrinsically. See VS flowsheet. ABG and
MVO2 sent per order of JAMIL Rodriguez. Results also seen by PA. Pt stated he felt he was having nausea briefly. Received Zofran 4 mg IV at 1645. and son, Will, at bedside. Updated on pt status. Ongoing plan of care.
[2025-01-31] MEDS: SENOKOT PO (21:22)
[2025-01-31] MEDS: COMPAZINE 10 MG IV (21:34)
[2025-01-31] MEDS: DILAUDID 0.25 MG IV (22:11)
--- NOTE | 2025-01-31 22:15 | PTCARENOTE ---
Levo gtt was titrated down to 2 mcg/min at 2108. At ~2115, pt HR 40's, BP trending downwards: 108/42. Pt remains awake, talking. States he feels 'sick to his stomach'. Levo up to 3 mcg, then 4 mcg/min. PA at bedside. Compazine 10 mg IV ordered and
given. See MAY. Levo gtt back down to 3 mcg/min at 2119 for SBP 140, MAP 81. Pt repositioned in bed. C/O 9/ sternal pain. Dilaudid 0.25 mg IV given at 2210 for sternal pain.
[2025-01-31 22:25] LABS: Glucose - Point of Care 110 mg/dl (70-99)
[2025-02-01] VITALS (44 sets, daily range): BP systolic 68–148; BP diastolic 52–106; PULSE 71; O2SAT 96; BMI 33.4
[2025-02-01] LABS: Glucose - Point of Care 111 mg/dl (70-99)
[2025-02-01] MEDS: NEURONTIN 100 MG PO ×4 (00:30→21:44)
[2025-02-01] MEDS: TYLENOL 975 MG PO ×3 (00:30→21:45)
[2025-02-01] MEDS: VANCOCIN 200 IV ×2 (00:43→13:02)
[2025-02-01 02:16] LABS: Glucose - Point of Care 125 mg/dl (70-99)
--- NOTE | 2025-02-01 02:30 | PTCARENOTE ---
Levo gtt off at 0204 for BP 133 systolic, MAP 71. At ~0223 Levo gtt resumed at 1 mcg due to BP down to 103/39 (57) off levo gtt via L radial A-line. Discussed with JAMIL Rodriguez. HR noted to be 48-50 bpm, SR. Levophed gtt resumed at 1 mcg/min at 0223.
Current BP via A line 122/44 (64). BP via R upper arm cuff: 116/57 (74). HR SB, rate 48-60's (SR).
[2025-02-01 04:03] LABS: Glucose - Point of Care 111 mg/dl (70-99)
[2025-02-01 04:11] LABS: Hematocrit 34.0 % (39.0-52.0); Hemoglobin 10.7 g/dL (13.0-18.0); Mean Corp Hgb Conc. 31.5 g/dL (33.0-37.0); Mean Corpuscular Volume 81.1 fL (80.0-94.0); Platelet Count 217 10^3/uL (130-400); Red Cell Dist. Width 14.4 % (11.5-14.5)
[2025-02-01 04:36] LABS: Blood Urea Nitrogen 22 mg/dl (9-20); Calcium 8.6 mg/dl (8.4-10.2); Carbon Dioxide 23 mmol/L (22-30); Chloride 108 mmol/L (98-107); Estimated Creatinine Clearance 60 ml/min; Glucose 109 mg/dl (70-99); Magnesium 2.6 mg/dl (1.6-2.3); Potassium 4.7 mmol/L (3.5-5.1); Sodium 133 mmol/L (135-145); eGFR > 60.00
[2025-02-01] MEDS: LR 250 ML IV (04:38)
[2025-02-01] MEDS: DILAUDID 0.25 MG IV (05:23)
[2025-02-01 06:43] LABS: Glucose - Point of Care 109 mg/dl (70-99)
--- NOTE | 2025-02-01 06:50 | PTCARENOTE ---
Labs drawn and sent this am. EKG done, shown to PA. CXR done. Discussed labs with PA. SLIC d/c'ed per order. PA instructed RN to get pt OOB as tolerated. Pt to sitting position. Cuff BP 104/50's. No dizziness/lightheadedness. Pt helped to standing
with 3 RNs. Able to stand on scale. When getting into chair, pt felt weak. BP dropped to 68 systolic, HR 50, SB. Pt reclined in chair. Levo gtt started at 4 mcg/min. BP up to 78, then 100's, increasing to 120's systolic. Pt remained awake, talking
through entire transfer. Dr. Martinez in to see pt and aware of hypotension when sitting in chair. Levo gtt titrated down to 2 mcg/min. BP now 128/58 via cuff, and 125/37 via A-line. Pt on 4L/NC. Sats 96%. Will give shift report to Ramiro ZENG.
[2025-02-01] MEDS: TYLENOL PO (06:59)
--- NOTE | 2025-02-01 07:02 | W.PN.CT ---
Today's Communication / Plan
-
-pod #1
-no significant issues overnight, brief vagal episode with bradycardia high 30s
-mVO2 is 66.8. Drips: Insulin only. Levo is off at 5 pm
-CT outputs: 2 meds 100/200, 2 pleur 120/215 in 12/24 hrs
-deline
-d/c insulin
-d/c Hutchison
-current meds (ASA, Plavix, Lipitor, Protonix). Holding BB and Amio d/t bradycardia
-encourage IS, OOB
Assessment / Plan
-
- MVCAD including LM disease- s/p CABG x 4 (JERZY to LAD, GSV to D1, GSV to LPLB, GSV to RPDA); ELAA (35mm AtriClip) by Dr. Martinez on 01/31/25, pod #1
- Post-AUSTYN: Normal biventricular function, no significant VHD, CHERRI confirmed excluded
- Pt. w/ preoperative sinus bradycardia in 40s under GA, postoperatively continued bradycardia in 30s - bipolar V-wire placed - paced at 70.
- HTN/HLD
- R elbow fx, s/p ORIF 2009
- R rotator cuff tear 2009
- L1-L2 hemilaminectomy, L2-L5 laminectomy/redo laminectomy L2-L3
- Discectomy [address] Irving Meehan
- b/l cataract
- Former smoker
- Sober since 30s
- Acute postop blood loss anemia
- Acute postop atelectasis
- Acute postop hypovolemia with subsequent hypervolemia
Discussed patient care with: Nursing and Care Team
Subjective
-
Date of Service: February 01, 2025
Objective Data
-
PT 16.5 Sec (11.4-14.6) H 01/31/25 13:53
INR 1.28 01/31/25 13:53
APTT 30.1 Sec (23.4-35.0) 01/31/25 13:53
Vital Signs
Vital Signs
Temp Pulse Resp BP Pulse Ox
98.7 F 56 18 110/52 97
01/31/25 23:00 01/31/25 23:02 01/31/25 23:02 01/31/25 23:00 01/31/25 23:02
CT Intake/Output/Weight
01/31/25 01/31/25 02/01/25
06:59 18:59 06:59
Intake Total 168.1 / 327.9 159.8 / 327.9
Output Total 565 / 890 325 / 890
Balance -396.9 / -562.1 -165.2 / -562.1
SaO2: 97
Physical Exam
-
General: Awake and AOx3
Cardiovascular: Regular rate & rhythm, Murmur and Rub
Respiratory: Decreased Breath Sounds
Sternum: Stable
Incision: Clean, Dry and Intact
Extremities: No Edema
Data Reviewed
-
Lab Results: Results Reviewed
Medications: Active Meds Reviewed
Chest X-Ray: Report Reviewed and Image Reviewed
ECG: Report Reviewed and Image Reviewed
--- NOTE | 2025-02-01 07:23 | W.PN.ANS.POP ---
Anesthesia Post Operative
- Anesthesia Post Op Note
Vital Signs Stable-See Nursing Note: Yes (Patient on norepinephrine at low dose)
Airway Patent: Yes (Extubated to NC and OOB to chair)
Adequate Pain Control: Yes
Change in Mental Status: No
Current Postoperative Nausea & Vomiting: No
Anesthesia Complications: No
General Anesthetic Recall: No
Unplanned Admission: No
Post Op Hydration Adequate: Yes
--- NOTE | 2025-02-01 08:25 | W.PN.INTV ---
Addendum entered and electronically signed by Greg Gil MD 02/01/25 15:56:
- Patient transferred out of CVICU, wastewater treatment engineer service will sign off, please call as needed.
Original Note:
Today's Communication / Plan
Recommendations
- Continue to wean Levophed as tolerated
- Incentive spirometry
- Patient will benefit from sleep study as outpatient, information added to discharge section
Assessment
-
79-year-old gentleman with multivessel coronary artery disease, s/p coronary artery bypass graft and left atrial appendage exclusion, POD # 0
Titrate off pressors per protocol, currently on Levophed at 1, MAP of 64.
ECHO reviewed with normal systolic function.
Management of chest tubes per primary service
Patient extubated, currently saturating 97% on 4 L supplemental oxygen. No respiratory distress.
CXR with slightly progressed left lower lobe atelectasis, continue incentive spirometry
No prior known history of pulmonary disease
Spirometry reviewed, unremarkable
Can add nebulizers if needed
Aspiration precautions
Encouraged incentive spirometry, OOB/ambulation/early mobility
Advance diet as tolerated following extubation
GI prophylaxis: Protonix
Monitor critical I/O's
Hutchison/chest tube output
Hb/platelets postoperatively, mild drift
Trend CBC for now
Can transfuse if indicated for Hb <7, plt <50 in surgical patients
DVT prophylaxis including SCDs
Insulin protocol initiated and ongoing
Transition to SQ/off as indicated per team
Other medical diagnoses:
- HTN
- HLD
- History of cigar use, patient quit close to 10 years ago. No pulmonary symptoms reported
- Suspect patient for sleep disordered breathing. Patient will benefit from sleep study as outpatient. Reports sleepiness during daytime as well as frequent naps. Reported history of snoring at night. Follow-up information added to discharge
section.
Critical Care time [36] mins -- The patient is admitted for acute critical illness for the treatment of vital organ failure and/or prevention of further life-threatening conditions. Total care includes time spent in review of history, physical exam,
medications, hemodynamic/ventilator parameters, laboratory data, imaging and discussion with house staff, pharmacy, respiratory therapy, cloth checker, and nursing
Data:
Spirometry 01/2025: Normal spirometry without evidence of obstruction or restriction, FEV1 94%.
ECHO 01/2025: 1. Normal left ventricular size and function. No regional wall motion abnormalities. The estimated ejection fraction is 59% by Kapoor's method of disc. Normal diastolic function.
2. Trileaflet aortic valve. The aortic valve is sclerotic but not stenotic. No aortic insufficiency.
3. Trace mitral valve regurgitation.
4. Trace tricuspid regurgitation.
5. When compared to the most recent echocardiogram from 08/31/2014 there has been no significant change.
LHC 01/2025: 1. Multivessel coronary artery disease involving left main, ostial LAD and ostial circumflex and mid RCA. Moderate to heavy coronary calcification
2. Preserved LV function
Lexiscan 01/2025: Abnormal stress test
Negative ECG for ischemia given the pharmacological study.
Moderate sized apical, mid anterior mid anteroseptal defect predominantly reversible which may be consistent with ischemia
Systolic function is normal. The ejection fraction is 58%.
Stress Risk is moderate risk study (1 - 3% CA or /year)
CT Chest 01/2025: Mild dependent atelectasis in the posterior lungs. The lungs appear otherwise clear.
Mild to moderate calcification of the aortic arch and descending thoracic aorta with no aneurysm.
Coronary artery calcifications.
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
Bony degenerative changes as described.
Subjective Dataa
Subjective Data
Date of Service:
Date of Service: February 01, 2025
Subjective:
Patient extubated, comfortably sitting in chair in no acute distress
Review of Systems
Genitourinary: Other (No new symptoms reported)
Objective Data
Data Reviewed
Vital Signs / I&O / Oxygen:
Vital Signs
Temp Pulse Resp BP Pulse Ox
98.4 F 62 18 128/58 94
02/01/25 05:15 02/01/25 06:46 02/01/25 06:46 02/01/25 06:37 02/01/25 06:46
Intake and Output
01/31/25 02/01/25 02/02/25
06:59 06:59 06:59
Intake Total 1080 / 1080 1193.3 / 1193.3
Output Total 200 / 200 1340 / 1340
Balance 880 / 880 -146.7 / -146.7
SaO2 [CPAP] 99
SaO2 [SIMV] 98
SaO2 94
Nasal Cannula flow liters per 3
minute
Physical Exam
General: Comfortable
HEENT: Normocephalic
Cardiovascular: S1-S2
Respiratory: Clear and Non-Labored Respirations
GI: Soft and Non Distended
Neurology: Awake and Alert
Skin: Warm
Labs/Micro/Reports
Lab Data
02/01/25 03:37
02/01/25 03:37
Laboratory Results
01/31/25 01/31/25 01/31/25
13:53 16:59 19:37
PT 16.5 H
INR 1.28
APTT 30.1
pH 7.37 7.37 7.38
pCO2 37 38 38
pO2 89 151 H 110 H
HCO3 21.4 22.0 22.5
O2 Delivery Level Not Reportable
--- NOTE | 2025-02-01 08:58 | PN.CDI ---
CDI
- -
CDI:
Physician Documentation Request
Admit Date: 01/30/25 10:21
Dear Doctor/ CVPA,
Please review the following and provide your response in the progress notes.
Clinical Indicators:
Pt admitted with CAD for cardiac cath now s/p CABG on 01/31
Sodium levels are as below/Pt did get IVFs LR
Laboratory Tests
01/31/25 02/01/25
05:03 03:37
Sodium 132 L 133 L
Based on the above, could you clarify in the progress notes, the appropriate diagnosis, if significant, that supports the above abnormalities and additional evaluation, monitoring and/or treatment rendered:
Hyponatremia
Abnormal lab value only
Other ( please specify)
Use of terms such as suspected, likely, concern for, or probable (associated with a specific diagnosis that is being evaluated, monitored, or treated as if it exists) are acceptable and can be coded in the inpatient setting, when documented at the
time of discharge.
Thank you,
Joy Charles RN
CDI Specialist
[employer]
Please use your independent medical judgment in providing your response.
[2025-02-01 08:59] LABS: Glucose - Point of Care 104 mg/dl (70-99)
[2025-02-01] MEDS: LIDOCAINE 4% PATCH 1 PATCH TOPICAL (09:03)
[2025-02-01] MEDS: LOW STRENGTH ASPIRIN 81 MG PO (09:04)
[2025-02-01] MEDS: MAGNESIUM OXIDE 400 MG PO (09:05)
[2025-02-01] MEDS: SENOKOT 8.6 MG PO ×2 (09:05→21:44)
[2025-02-01] MEDS: PLAVIX 75 MG PO (09:05)
[2025-02-01] MEDS: PROTONIX 40 MG PO (09:06)
[2025-02-01] MEDS: FLEXERIL 5 MG PO (09:30)
[2025-02-01] MEDS: BACTROBAN 2% OINTMENT 1 APPLIC NASAL ×2 (09:31→21:43)
--- NOTE | 2025-02-01 11:21 | PTCARENOTE ---
PT AAOx4 in chair, Levo is off, When pt stood BP dropped to 70's and HR to 50's Pt recovered quickly when sat in chair and CT surgery notified
--- NOTE | 2025-02-01 11:36 | CM ---
Chart reviewed. Patient OOB sitting in the chair, family at bedside. Patient is independent of ADLS, lives with his in a [address], [facility], ambulates with a SPC. Planis for the patient to return home with CT Transitional RN. CM to follow
--- NOTE | 2025-02-01 12:09 | W.PN.CARDCBS ---
Addendum entered and electronically signed by Bibiana Moctezuma MD 02/01/25 16:36:
I saw and examined the patient.
The Teaseler's note was reviewed and I agree with the note.
Comment: Sitting in the chair with family at the bedside. Vagal event with some dizziness noted earlier today. Continue to follow blood pressure. Caution with changing position. Vital signs currently stable. Telemetry has been stable. EKG and
exam consistent with pericarditis. No significant unusual symptoms noted. Continue to follow. Some lower extremity edema noted.
Status post CABG x 4
Normal left ventricular ejection fraction 55 to 60%.
- Continue usual postop care.
- Continue aggressive risk factor modification.
- Caution with changing position.
- Follow telemetry and labs.
Discussed with nursing and family.
Original Note:
Today's Communication / Plan
-
continue post op care
in SR
Impression / Plan
-
Diversified Crops Farmworker: Hellen
Assessment:
Abnormal stress test
MV CAD
CABG x 4 (JERZY to LAD, GSV to D1, GSV to LPLB, GSV to RPDA) and ELAA 01/31/25
HTN
HLD
Assessment:
-Underwent left heart catheterization 01/30/2025 which was performed for abnormal stress test and showed multivessel coronary disease
-Patient subsequently underwent CABG x 4 on 01/31/25
-extubated overnight and sitting out of bed to chair at present
-off pressors
-had vagal episode overnight and some dizziness again this AM. will follow. holding amio/BB for now
-in SR on review of tele. EKG 02/01 with evidence of pericarditis, follow
-hgb 10.7. continue asa, plavix
-LDL on 01/31 was 89. continue high intensity statin
-continue post op care
-d/w nursing. d/w at bedside
Progress Note - Diversified Crops Farmworker
Subjective
Date of Service: February 01, 2025
reported some dizziness with getting up this AM.
Objective
Labs:
02/01/25 03:37
02/01/25 03:37
Labs
Hgb 10.7 g/dL (13.0-18.0) L 02/01/25 03:37
Hct 34.0 % (39.0-52.0) L 02/01/25 03:37
Plt Count 217 10^3/uL (130-400) 02/01/25 03:37
PT 16.5 Sec (11.4-14.6) H 01/31/25 13:53
INR 1.28 01/31/25 13:53
APTT 30.1 Sec (23.4-35.0) 01/31/25 13:53
Sodium 133 mmol/L (135-145) L 02/01/25 03:37
Potassium 4.7 mmol/L (3.5-5.1) 02/01/25 03:37
BUN 22 mg/dl (9-20) H 02/01/25 03:37
Creatinine 1.2 mg/dL (0.7-1.3) 02/01/25 03:37
Glucose 109 mg/dl (70-99) H 02/01/25 03:37
Vital Signs and I&O:
Vital Signs
Temp Pulse Resp BP Pulse Ox
98.2 F 68 22 122/55 97
02/01/25 08:00 02/01/25 11:10 02/01/25 11:10 02/01/25 11:00 02/01/25 11:10
Vital Signs
Temp Pulse Resp BP Pulse Ox
98.2 F 68 22 122/55 97
02/01/25 08:00 02/01/25 11:10 02/01/25 11:10 02/01/25 11:00 02/01/25 11:10
Intake & Output
01/30/25 01/31/25 02/01/25 02/02/25
07:59 07:59 07:59 07:59
Intake Total 1080 / 1080 1319.1 / 1331.1 48
Output Total 200 / 200 1340 / 1355 55 / 55
Balance 880 / 880 -20.9 / -23.9 -7 / -7
Physical Exam
Physical Exam
GEN: No distress, awake, alert, oriented x3. sitting in chair. on supp O2
HEENT: supple, anicteric, mmm, eomi
LUNGS: CTA B/L, no wheezes
CV: Reg, S1/S2, no murmur
ABD: soft, ND
EXT: No cyanosis, clubbing. trace edema of B/L LE
NEURO: Gross non-focal
SKIN: Warm, pink, dry. No rash. Sternotomy dressing c/d/i. CTs in place
: darrell
[2025-02-01] MEDS: NSS IV (12:54)
--- NOTE | 2025-02-01 13:51 | PTCARENOTE ---
VS WNL, pt was holding breath when standing so educated pt on proper body mechanics and tips for standing post op and is not longer light headed while getting up
[2025-02-01 14:58] LABS: Glucose - Point of Care 94 mg/dl (70-99)
[2025-02-01 14:58] LABS: Glucose - Point of Care 106 mg/dl (70-99)
[2025-02-01] MEDS: PACERONE 200 MG PO (15:58)
--- NOTE | 2025-02-01 16:22 | PTCARENOTE ---
Pt VS WNL was able to wean off oxygen, Nhi is D/C'ed, Pt worked with PT and walked no episodes of being lightheaded
[2025-02-01] MEDS: LIPITOR 80 MG PO (17:48)
[2025-02-01] MEDS: LOPRESSOR 12.5 MG PO (21:44)
[2025-02-01] MEDS: REMOVE LIDOCAINE PATCH 1 PATCH REMOVE (21:44)
[2025-02-01] MEDS: ROXICODONE 5 MG PO (21:45)
--- NOTE | 2025-02-01 22:00 | PTCARENOTE ---
Report at shift change from KARRI Rubio. Walking rounds done. Pt in chair. VS done. Pt assessed. Assisted to bed with 2 RNs. Pt awake, alert, oriented x 4. Speech clear. Equal strength x 4. Pt on room air in chair. Sats 92%. Increased to 4L/NC in bed.
Sats 97-98%. BBS present. Decreased B bases. CDB, IS encouraged. CT x 4, all to -20 cm suction. No air leak, tidaling, or crepitus. Dressing changed done per protocol. Audible heart tones. Pt in SR, 70-80 bpm. Metoprolol 12.5 mg given after
discussing with PA. V wire insulated-near temp PM in case of emergency. Normotensive. See flowsheets for pulse and wound assessments. Marc wrap taken off RLE. Belly soft, nontender. Normoactive bs x 4. Hutchison with clear, yellow urine. Oxycodone 5 mg
given at 2145 for 4/10 sternal pain. CHG bath done. Ongoing plan of care. Family home for evening.
--- NOTE | 2025-02-01 23:36 | W.PN.CT ---
Today's Communication / Plan
-
-pod #2
-no issues overnight
-no drips
-BB and Amio resumed, monitor for bradycardia
-follow Cr (1.2 preop)- 1.3 today
-wt is up 10 lbs- diurese
-follow Na - 131 today
-[address] outputs: 2 meds 80/160, 2 pleur 60/145 in 12/24 hrs
-encourage IS, OOB
Assessment / Plan
-
- MVCAD including LM disease- s/p CABG x 4 (JERZY to LAD, GSV to D1, GSV to LPLB, GSV to RPDA); ELAA (35mm AtriClip) by Dr. Martinez on 01/31/25, pod #2
- Post-AUSTYN: Normal biventricular function, no significant VHD, CHERRI confirmed excluded
- Pt. w/ preoperative sinus bradycardia in 40s under GA, postoperatively continued bradycardia in 30s - bipolar V-wire placed - paced at 70.
- HTN/HLD
- R elbow fx, s/p ORIF 2009
- R rotator cuff tear 2009
- L1-L2 hemilaminectomy, L2-L5 laminectomy/redo laminectomy L2-L3
- Discectomy [address] Irving Meehan
- b/l cataract
- Former smoker
- Sober since 30s
- Acute postop blood loss anemia
- Acute postop atelectasis
- Acute postop hypovolemia with subsequent hypervolemia
- Acute postop hyponatremia
Discussed patient care with: Nursing and Care Team
Subjective
-
Date of Service: February 01, 2025
Objective Data
-
Lab Results
02/01/25 03:37
02/01/25 03:37
PT 16.5 Sec (11.4-14.6) H 01/31/25 13:53
INR 1.28 01/31/25 13:53
APTT 30.1 Sec (23.4-35.0) 01/31/25 13:53
Vital Signs
Vital Signs
Temp Pulse Resp BP Pulse Ox
98.1 F 75 18 138/59 98
02/01/25 21:28 02/01/25 21:45 02/01/25 21:45 02/01/25 21:44 02/01/25 21:45
CT Intake/Output/Weight
02/01/25 02/01/25 02/02/25
06:59 18:59 06:59
Intake Total 1025.2 / 1319.1 725.0 / 755.0 30 / 755.0
Output Total 775 / 1340 415 / 630 215 / 630
Balance 250.2 / -20.9 310.0 / 125.0 -185 / 125.0
SaO2: 98
Physical Exam
-
General: Awake and AOx3
Cardiovascular: Regular rate & rhythm, No Murmurs and No Rub
Respiratory: Decreased Breath Sounds
Sternum: Stable
Incision: Clean, Dry and Intact
Extremities: Edema +1 (hands and feet b/l. 2+ DPs b/l)
Abdomen: soft, nontender, nondistended, + bowel sounds
Data Reviewed
-
Lab Results: Results Reviewed
Medications: Active Meds Reviewed
Chest X-Ray: Report Reviewed and Image Reviewed
ECG: Report Reviewed and Image Reviewed
[2025-02-02] VITALS (24 sets, daily range): BP systolic 105–146; BP diastolic 54–109; PULSE 66–67; O2SAT 95–96; BMI 34.2
[2025-02-02] MEDS: PACERONE 200 MG PO ×4 (00:32→21:46)
[2025-02-02] MEDS: FLEXERIL 5 MG PO (02:36)
--- NOTE | 2025-02-02 02:40 | PTCARENOTE ---
Pt repositioned in bed. C/O pain to CT sites. Flexeril 5 mg po given at 0236.l
[2025-02-02] MEDS: DILAUDID 0.25 MG IV (04:32)
--- NOTE | 2025-02-02 04:42 | PTCARENOTE ---
Labs drawn and sent. Pt c/o persistent lower sternal, CT site pain, and upper back pain. Dilaudid 0.25 mg IV given at 0432.
[2025-02-02 05:01] LABS: Hematocrit 30.4 % (39.0-52.0); Hemoglobin 9.6 g/dL (13.0-18.0); Mean Corp Hgb Conc. 31.6 g/dL (33.0-37.0); Mean Corpuscular Volume 82.2 fL (80.0-94.0); Platelet Count 178 10^3/uL (130-400); Red Cell Dist. Width 14.5 % (11.5-14.5)
[2025-02-02 05:37] LABS: Blood Urea Nitrogen 26 mg/dl (9-20); Calcium 8.1 mg/dl (8.4-10.2); Carbon Dioxide 26 mmol/L (22-30); Chloride 102 mmol/L (98-107); Estimated Creatinine Clearance 56 ml/min; Glucose 115 mg/dl (70-99); Magnesium 2.3 mg/dl (1.6-2.3); Potassium 4.4 mmol/L (3.5-5.1); Sodium 131 mmol/L (135-145); eGFR 55.19
[2025-02-02] MEDS: TYLENOL 975 MG PO ×3 (06:47→21:45)
--- NOTE | 2025-02-02 07:20 | PTCARENOTE ---
Pt helped to scale then chair this am - 2 RN assist. VS stable. HR 70's, SR. States pain is better after Dilaudid 0.25 mg IV. Report to KARRI Flores.
--- NOTE | 2025-02-02 07:53 | PTCARENOTE ---
Patient received from weight shifter resting oob in chair, AAO X 3, c/o moderate sternal and chest tube discomfort, medicated for such (see MAR). NSR via cm, SaO2 @ 97% on 2lnc. RIJ Cordis w/kvo infusing. Epicardial V-wire, tied to pulse generator, set
to 30bpm. Mediastinal chest tubes x 2, Y-connected to one pleurevac, L and R chest tubes Y'd to separate collection chamber - both to -20cm suction w/no air leaks noted. Hutchison catheter to gravity. All procedural sites stable. Patient demonstrates
I.S. to 750-1000ml. Patient updated to plan of care for the day, in agreement. See work list for full assessment and interventions performed.
[2025-02-02] MEDS: NEURONTIN 100 MG PO ×3 (08:09→21:45)
[2025-02-02] MEDS: BACTROBAN 2% OINTMENT 1 APPLIC NASAL ×2 (08:09→20:27)
[2025-02-02] MEDS: PLAVIX 75 MG PO (08:09)
[2025-02-02] MEDS: LOW STRENGTH ASPIRIN 81 MG PO (08:09)
[2025-02-02] MEDS: LIDOCAINE 4% PATCH 1 PATCH TOPICAL (08:09)
[2025-02-02] MEDS: ROXICODONE 5 MG PO ×2 (08:10→21:46)
[2025-02-02] MEDS: SENOKOT 8.6 MG PO ×2 (08:10→20:26)
[2025-02-02] MEDS: LOPRESSOR 12.5 MG PO ×2 (08:10→20:26)
[2025-02-02] MEDS: PROTONIX 40 MG PO (08:11)
[2025-02-02] MEDS: LASIX 40 MG IV ×2 (08:11→15:39)
--- NOTE | 2025-02-02 11:00 | PTCARENOTE ---
Cannot verify accuracy of captured vital signs prior to 1100.
[2025-02-02] MEDS: CORDARONE 103 MG IV (11:55)
[2025-02-02] MEDS: CORDARONE 259 MG IV ×2 (12:08→21:42)
[2025-02-02] MEDS: NSS IV (13:37)
--- NOTE | 2025-02-02 14:17 | W.PN.CARDCBS ---
Addendum entered and electronically signed by Bibiana Moctezuma MD 02/02/25 16:02:
I saw and examined the patient.
The Gallery Intern's note was reviewed and I agree with the note.
Comment: Laying in bed. No current complaints. Atrial fibrillation noted with rapid ventricular response. He remains asymptomatic. No further vagal events. Blood pressure stable.
Status post CABG x 4 with normal left ventricular ejection fraction. Status post 35mm atrial clip. By transesophageal echocardiogram left atrial appendage was excluded.
- Agree with amiodarone and metoprolol.
- Consider short-term anticoagulation if atrial fibrillation continues.
- Check EKG in the morning.
- Follow telemetry
- Increase activity as able.
- Continue usual postop care
Original Note:
Today's Communication / Plan
-
Went into atrial fibrillation with rapid ventricular response today. Now on IV amiodarone
EKG in a.m.
Agree with 40 mg IV Lasix x 1
Wean oxygen as tolerated
Continue to monitor renal function, electrolytes and weights
Impression / Plan
-
PCP: Jazmin Kim
Field Contact Person: Philip Macedo
Impression:
Abnormal stress test performed in preparation for knee replacement
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
CABG x 4 (JERZY to LAD, GSV to D1, GSV to LPLB, GSV to RPDA) and ELAA 01/31/25
HTN
HLD
AUSTYN 01/31/2025 postop: 55%. Mild MR. Trace TR/PI. Left atrial appendage adequately excluded by 2D echo and color-flow interrogation.
Echo 01/30/2025: EF 59%. No regional wall motion abnormality. No significant valve disease.
Cardiac catheterization 01/30/2025: LM: 75 distal stenosis with dampening on engagement. LAD: 70% ostial. Diffuse luminal luminal irregularities throughout vessel. Circumflex: Ostial 95% stenosis. OM1 80% ostial stenosis. RCA: Diffuse mid 30%
stenosis followed by focal 60% mid stenosis. 50% stenosis just prior to the crux and 40% mid PDA stenosis.
Lexiscan nuclear stress test 01/15/2025: Moderate size moderate severity apical, mid anterior and mid anteroseptal reversible defects which may be consistent with ischemia. TDI 1.2. EF 58%
Assessment:
-Underwent left heart catheterization 01/30/2025 which was performed for abnormal stress test and showed multivessel coronary disease
-Patient subsequently underwent CABG x 4 (JERZY to LAD, GSV to D1, GSV to LPLB, GSV to RPDA) and ELAA) 01/31/25
-extubated and off pressors
-had vagal episode overnight and dizziness 02/01/2025. Beta-bin and amiodarone were held.
-Patient developed atrial fibrillation with rapid ventricular response on 02/02/2025 now on amiodarone drip. Will need anticoagulation when safe from surgical standpoint
- Postop EKGs concerning for pericarditis. Patient denying chest pain. Continue to follow
-Chest x-ray 02/02/2025 with improving left lower lobe atelectasis and small right pleural effusion
- Presurgery hemoglobin 13.0. Current hemoglobin 9.6. Continue to monitor and trend.
- Continue asa, Plavix for graft patency
-Weight up 10 pounds since admission. Got IV Lasix 40 mg 02/02/2025. Continue to monitor and trend weight, renal function and electrolytes
-LDL on 01/31 was 89. Now on high intensity statin. Will need repeat lipids 2 to 3 months as outpatient
-continue post op care
-d/w nursing. d/w at bedside
Progress Note - Field Contact Person
Subjective
Date of Service: February 02, 2025
Patient seen and examined. Patient resting comfortably in bed on 2 L of oxygen via nasal cannula
Objective
Labs:
02/02/25 04:27
02/02/25 04:27
Labs
Hgb 9.6 g/dL (13.0-18.0) L 02/02/25 04:27
Hct 30.4 % (39.0-52.0) L 02/02/25 04:27
Plt Count 178 10^3/uL (130-400) 02/02/25 04:27
PT 16.5 Sec (11.4-14.6) H 01/31/25 13:53
INR 1.28 01/31/25 13:53
APTT 30.1 Sec (23.4-35.0) 01/31/25 13:53
Sodium 131 mmol/L (135-145) L 02/02/25 04:27
Potassium 4.4 mmol/L (3.5-5.1) 02/02/25 04:27
BUN 26 mg/dl (9-20) H 02/02/25 04:27
Creatinine 1.3 mg/dL (0.7-1.3) 02/02/25 04:27
Glucose 115 mg/dl (70-99) H 02/02/25 04:27
Vital Signs and I&O:
Vital Signs
Temp Pulse Resp BP Pulse Ox
97.9 F 66 17 139/70 97
02/02/25 07:45 02/02/25 09:30 02/02/25 07:45 02/02/25 08:11 02/02/25 07:50
Vital Signs
Temp Pulse Resp BP Pulse Ox
97.9 F 66 17 139/70 97
02/02/25 07:45 02/02/25 09:30 02/02/25 07:45 02/02/25 08:11 02/02/25 07:50
Intake & Output
01/31/25 02/01/25 02/02/25 02/03/25
06:59 06:59 06:59 06:59
Intake Total 1080 / 1080 1193.3 / 1319.1 825.0 / 835.0 563.3 / 563.3
Output Total 200 / 200 1340 / 1340 1095 / 1135 925 / 925
Balance 880 / 880 -146.7 / -20.9 -270.0 / -300.0 -361.7 / -361.7
Physical Exam
Physical Exam
GEN: No distress, awake, Ox3, sitting in bed
HEENT: supple, anicteric, mmm
LUNGS: Crackles at left base, mildly decreased at right base otherwise CTA, no wheezes/rales
CV: Irregularly irregular, accelerated,, S1/S2, no murmur, positive pericardial rub
ABD: soft, BS+, NT/ND
EXT: No edema, clubbing or cyanosis
NEURO: Gross non-focal
SKIN: No rash, warm, dry, pink
--- NOTE | 2025-02-02 14:40 | CM ---
Chart reviewed. Patient independent of ADLS, lives with his in [address] [facility], [address] [facility], ambulates with a SPC. PT evaluation recommending Home PT vs Rehab. CM to follow.
--- NOTE | 2025-02-02 14:45 | PTCARENOTE ---
Assumed care of patient at 1100, received report from RN. Nursing assessment completed and as documented. Patient converted from NSR to Afib ~1115, asymptomatic. EKG resulted Afib RVR rate 113. CVNP notified, order for IV Amio bolus and gtt - see
MAR for administration. Orders to remove chest tubes x4, ramírez and disconnect epicardial pacing wire from box. Verified with CVNP to keep epicardial wires plugged into box given conversion to Afib RVR, keep connected to box for now. GEOGRAPHIC INFORMATION SYSTEMS ENGINEER's removed
chest tube sites x4 without difficulty, patient tolerated well, vaseline gauze, 4x4 and ABD pad placed on CT site wounds. Ramírez removed and patient DTV by 1930, urinal provided at bedside. Remains on 2L NC sats 95-96%, 750-1000 on IS at bedside. R
IJ cordis patent and in place, now infusing amio. Left F/A PIV patent and in place. Wounds as documented, see worklist. VSS, call cordoba within reach, bed alarmed, at bedside, care ongoing.
[2025-02-02] MEDS: KCL 20 MEQ PO (15:40)
--- NOTE | 2025-02-02 16:13 | PTCARENOTE ---
Addendum entered by Ronn Aquino RN 02/02/25 16:18:
Removed 2L NC, 96% on RA. Care ongoing.
Original Note:
No changes to physical assessment. Patient remains in Afib, rates 100's, asymptomatic. Amio infusing per orders via R IJ cordis. CVNP ordered x1 dose of 40mg IV lasix and PO potassium - see MAR for administration. Patient voided into urinal s/p
ramírez catheter removal. Tolerating diet. VSS, call cordoba within reach, care ongoing.
[2025-02-02] MEDS: LIPITOR 80 MG PO (17:21)
[2025-02-02] MEDS: REMOVE LIDOCAINE PATCH 1 PATCH REMOVE (20:27)
--- NOTE | 2025-02-02 23:19 | PTCARENOTE ---
Recc'd pt at shift change; Pt AAOx3, makes needs known, pleasant and conversing with family at the bedside. Remains Afib on the monitor, pt states asymptomatic, Amio gtt infusing 05.mg/hr through R cordis. Remains connected to epicardial pacer
secondary to new onset Afib. Tolerating RA, SpO2 94%, lungs clear just diminished in the bases, IS encouraged, volume of 750mL witnessed. Remainder of assessment as documented. Wound care, UTD; dressings dry & intact, see worklist for individual
documentation. Pt reports 5/10 midsternal pain with surgical site, medicated as ordered, see MAR. Pt resting comfortably in bed, no needs at this time, call cordoba within reach.
[2025-02-03] VITALS (24 sets, daily range): BP systolic 106–162; BP diastolic 52–103; PULSE 68; BMI 34.1
--- NOTE | 2025-02-03 00:52 | W.PN.CT ---
Today's Communication / Plan
-
Plan:
-No major issues overnight. Hemodynamically and neurologically intact
-Postop A-fib with RVR, was started on Amiodarone gtt, on PO Amiodarone and BB
-Had a conversion pause overnight, requiring pacing with temporary PW @ backup of 35 bpm. Subsequently in sinus bradycardia @ 54 bpm
-D/C'd Amiodarone gtt, remains on PO Amiodarone and BB
-Will discuss OAC if further a-fib
-Maintain temporary PW
-Encourage use of IS
-OOB into chair/Ambulate
-PT/OT evaluating for eventual Home vs acute rehab
Assessment / Plan
-
- MVCAD including LM disease- s/p CABG x 4 (JERZY to LAD, GSV to D1, GSV to LPLB, GSV to RPDA); ELAA (35mm AtriClip) by Dr. Martinez on 01/31/25, pod #3
- Post-AUSTYN: Normal biventricular function, no significant VHD, CHERRI confirmed excluded
- Pt. w/ preoperative sinus bradycardia in 40s under GA, postoperatively continued bradycardia in 30s - bipolar V-wire placed - paced at 70.
- HTN/HLD
- R elbow fx, s/p ORIF 2009
- R rotator cuff tear 2009
- L1-L2 hemilaminectomy, L2-L5 laminectomy/redo laminectomy L2-L3
- Discectomy [address] Irving Meehan
- b/l cataract
- Former smoker
- Sober since 30s
- Acute postop blood loss anemia
- Acute postop atelectasis
- Acute postop hypovolemia with subsequent hypervolemia
- Acute postop hyponatremia
- Acute postop a-fib with RVR
- Acute postop bradycardia requiring pacing with temporary PW @ backup of 35 bpm. while on
Discussed patient care with: Cardiology, Nursing, Respiratory Therapy, Pharmacy and Care Team
Subjective
-
Date of Service: February 03, 2025
Pt c/o mild incisional pain, otherwise feel well
Objective Data
-
PT 16.5 Sec (11.4-14.6) H 01/31/25 13:53
INR 1.28 01/31/25 13:53
APTT 30.1 Sec (23.4-35.0) 01/31/25 13:53
Vital Signs
Vital Signs
Temp Pulse Resp BP Pulse Ox
98.0 F 86 18 106/52 93
02/02/25 20:20 02/03/25 00:15 02/02/25 15:38 02/03/25 00:00 02/03/25 00:15
CT Intake/Output/Weight
02/02/25 02/02/25 02/03/25
06:59 18:59 06:59
Intake Total 100 / 835.0 849.8 / 849.8
Output Total 680 / 1135 1575 / 2150 575 / 2150
Balance -580 / -300.0 -725.2 / -1300.2 -575 / -1300.2
SaO2: 93 (RA)
Physical Exam
-
General: Awake, Oriented and AOx3
Cardiovascular: Regular rate & rhythm and No Murmurs
Respiratory: Decreased Breath Sounds (at bases, otherwise feel well)
Sternum: Stable
Incision: Clean, Dry, Intact and Dressing Intact
Extremities: Other (+trace edema)
Data Reviewed
-
Lab Results: Results Reviewed
Medications: Active Meds Reviewed
Chest X-Ray: Report Reviewed and Image Reviewed
ECG: Report Reviewed and Image Reviewed
--- NOTE | 2025-02-03 01:12 | PTCARENOTE ---
Pt bradycardic on the monitor activating temporary pacemaker. Pt asleep, reports no symptoms upon being woken. Denies CP/SOB/palpitations. Placed on 2L O2 NC for comfort. D/w covering provider, Eden Sal, Amiodarone gtt placed on standby by at
this time and disconnected from pt, NSS @ 10mL/hr KVO initiated in its place. F/u EKG confirms conversion to sinus bradycardia from previous Afib. Pt updated on POC, no remaining questions at this time, resting comfortably in bed, call cordoba within
reach.
[2025-02-03 04:47] LABS: Hematocrit 28.4 % (39.0-52.0); Hemoglobin 9.4 g/dL (13.0-18.0); Mean Corp Hgb Conc. 33.1 g/dL (33.0-37.0); Mean Corpuscular Volume 78.7 fL (80.0-94.0); Platelet Count 187 10^3/uL (130-400); Red Cell Dist. Width 14.2 % (11.5-14.5)
[2025-02-03 05:14] LABS: Blood Urea Nitrogen 26 mg/dl (9-20); Calcium 7.8 mg/dl (8.4-10.2); Carbon Dioxide 27 mmol/L (22-30); Chloride 99 mmol/L (98-107); Estimated Creatinine Clearance 57 ml/min; Glucose 107 mg/dl (70-99); Magnesium 2.2 mg/dl (1.6-2.3); Potassium 4.0 mmol/L (3.5-5.1); Sodium 131 mmol/L (135-145); eGFR 55.19
[2025-02-03] MEDS: CALCIUM GLUCONATE 100 IV (05:30)
[2025-02-03] MEDS: TYLENOL 975 MG PO ×3 (05:33→20:15)
--- NOTE | 2025-02-03 07:38 | W.PN.CARDCBS ---
Today's Communication / Plan
-
Hold metoprolol
Continue amiodarone 200 mg twice daily
Epicardial wires for short periods of backup pacing postconversion
Hopefully can avoid permanent pacing
Will follow closely with you
I would support oral anticoagulation at greater than 72 hours postsurgery with any further atrial fibrillation episodes
Impression / Plan
-
PCP: Jazmin Kim
Activity Therapist: Philip Macedo
Impression:
Abnormal stress test performed in preparation for knee replacement
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
CABG x 4 (JERZY to LAD, GSV to D1, GSV to LPLB, GSV to RPDA) and ELAA 01/31/25
HTN
HLD
AUSTYN 01/31/2025 postop: 55%. Mild MR. Trace TR/PI. Left atrial appendage adequately excluded by 2D echo and color-flow interrogation.
Echo 01/30/2025: EF 59%. No regional wall motion abnormality. No significant valve disease.
Cardiac catheterization 01/30/2025: LM: 75 distal stenosis with dampening on engagement. LAD: 70% ostial. Diffuse luminal luminal irregularities throughout vessel. Circumflex: Ostial 95% stenosis. OM1 80% ostial stenosis. RCA: Diffuse mid 30%
stenosis followed by focal 60% mid stenosis. 50% stenosis just prior to the crux and 40% mid PDA stenosis.
Lexiscan nuclear stress test 01/15/2025: Moderate size moderate severity apical, mid anterior and mid anteroseptal reversible defects which may be consistent with ischemia. TDI 1.2. EF 58%
Assessment:
-Underwent left heart catheterization 01/30/2025 which was performed for abnormal stress test and showed multivessel coronary disease
-Patient subsequently underwent CABG x 4 (JERZY to LAD, GSV to D1, GSV to LPLB, GSV to RPDA) and ELAA) 01/31/25
-extubated and off pressors
- Noted to have some postconversion pauses overnight with intermittent ventricular demand pacing. Sinus rhythm in the 60s this morning. Discussed with CT surgery team I do agree with metoprolol on hold but paradoxically would be better to keep him
in sinus rhythm and would try continuing amiodarone 200 mg twice daily to see if we can suppress his atrial fibrillation. As his inflammation decreases postsurgery hopefully arrhythmia burden will decrease temporally. Nonetheless if he continues
to have postconversion pauses throughout the weekend we may need to consider permanent pacing I described the procedure in detail although I hope we can maintain sinus with low-dose amiodarone with backup epicardial wires and not require permanent
pacing
- ECG findings noted
-Chest x-ray 02/02/2025 with improving left lower lobe atelectasis and small right pleural effusion
- Presurgery hemoglobin 13.0. Current hemoglobin 9.6. Continue to monitor and trend.
- Continue asa, Plavix for graft patency
-Weight up 10 pounds since admission. Got IV Lasix 40 mg 02/02/2025. Continue to monitor and trend weight, renal function and electrolytes
-LDL on 01/31 was 89. Now on high intensity statin. Will need repeat lipids 2 to 3 months as outpatient
-continue post op care
- Discussed with CT surgical team
Progress Note - Activity Therapist
Subjective
Date of Service: February 03, 2025
Events of overnight noted
Objective
Labs:
02/03/25 04:11
02/03/25 04:11
Labs
Hgb 9.4 g/dL (13.0-18.0) L 02/03/25 04:11
Hct 28.4 % (39.0-52.0) L 02/03/25 04:11
Plt Count 187 10^3/uL (130-400) 02/03/25 04:11
PT 16.5 Sec (11.4-14.6) H 01/31/25 13:53
INR 1.28 01/31/25 13:53
APTT 30.1 Sec (23.4-35.0) 01/31/25 13:53
Sodium 131 mmol/L (135-145) L 02/03/25 04:11
Potassium 4.0 mmol/L (3.5-5.1) 02/03/25 04:11
BUN 26 mg/dl (9-20) H 02/03/25 04:11
Creatinine 1.3 mg/dL (0.7-1.3) 02/03/25 04:11
Glucose 107 mg/dl (70-99) H 02/03/25 04:11
Vital Signs and I&O:
Vital Signs
Temp Pulse Resp BP Pulse Ox
97.9 F 65 18 127/57 99
02/02/25 23:05 02/03/25 06:15 02/02/25 15:38 02/03/25 05:00 02/03/25 05:30
Vital Signs
Temp Pulse Resp BP Pulse Ox
97.9 F 65 18 127/57 99
02/02/25 23:05 02/03/25 06:15 02/02/25 15:38 02/03/25 05:00 02/03/25 05:30
Intake & Output
02/01/25 02/02/25 02/03/25 02/04/25
06:59 06:59 06:59 06:59
Intake Total 1193.3 / 1319.1 825.0 / 835.0 945.8 / 945.8
Output Total 1340 / 1340 1095 / 1135 2575 / 2575
Balance -146.7 / -20.9 -270.0 / -300.0 -1629.2 / -1629.2
Physical Exam
Physical Exam
����Physical Exam
Sternum clean dry and intact
Lines and tubes noted
Epicardial wires noted
���������������������General:��no apparent distress, not acutely ill
���������������������������Neck:��supple. no meningeal signs. normal psoterior pharynx
������������������������
���������������������������Heart:��s1/s2 regular rate and rhythm, no murmur. equal radial pulses.
��������������������������Lungs: ��no acute respiratory distress. clear bilaterally
����������������������Abdomen:�normal bowel sounds. not tender. no CVAT
��������������������������Neuro:��alert and oriented. no focal neurological deficits
������������������������������Skin: ��no rash
�����������������������Psychiatric:�well kept. interactive and cooperative
�����������������������Extremities:��no edema. no calf tenderness. negative homans. good distal pulses
��
�
[2025-02-03] MEDS: KCL 40 MEQ PO (08:11)
[2025-02-03] MEDS: SENOKOT 8.6 MG PO ×2 (08:11→20:15)
[2025-02-03] MEDS: PACERONE 200 MG PO ×2 (08:11→20:15)
[2025-02-03] MEDS: NEURONTIN 100 MG PO ×3 (08:11→20:15)
[2025-02-03] MEDS: LASIX 40 MG IV ×2 (08:11→15:35)
[2025-02-03] MEDS: LOW STRENGTH ASPIRIN 81 MG PO (08:11)
[2025-02-03] MEDS: PLAVIX 75 MG PO (08:11)
[2025-02-03] MEDS: PROTONIX 40 MG PO (08:14)
[2025-02-03] MEDS: BACTROBAN 2% OINTMENT 1 APPLIC NASAL ×2 (08:14→20:15)
[2025-02-03] MEDS: LIDOCAINE 4% PATCH TOPICAL (08:23)
--- NOTE | 2025-02-03 10:00 | PTCARENOTE ---
Assumed care of pt from night RN. AAOx3. NSR on tele, HR 60s-70s. SpO2 98% on room air. VSS. R IJ cordis intact with KVO infusing. Epicardial V-wire rate set at 30bpm. CT wounds dressing CDI. Pt with loose BM x1 in bedside commode. OOB in chair with
family at bedside. Assessment documented.
[2025-02-03] MEDS: NSS IV (15:36)
[2025-02-03] MEDS: LIPITOR 80 MG PO (18:07)
[2025-02-03] MEDS: NORVASC 2.5 MG PO (18:09)
--- NOTE | 2025-02-03 20:00 | PTCARENOTE ---
Assumed care of patient. Patient resting in bed. Patient assessed, vitals obtained, see flowsheets. Pt has pacing wires in place, settings confirmed. Pt in NSR on monitor. VSS. Patient with minimal pain, scheduled tylenol given. Call cordoba within
reach.
[2025-02-03] MEDS: REMOVE LIDOCAINE PATCH 1 PATCH REMOVE (20:15)
--- NOTE | 2025-02-03 23:29 | W.PN.CT ---
Today's Communication / Plan
-
Plan:
-No major issues overnight. Hemodynamically and neurologically intact
-No further a-fib since converting on POD#2
-Currently NSR @ 81 bpm, no rhythm issues overnight
-On PO Amiodarone @ 200 mg BID, with BB on hold. EP following
-Will give trial of low dose Toprol XL, 12.5 mg Qdaily while we still have the luxury of temporary PW. Noted to be hypertensive with increased HR with activity
-Will resume home dose Amlodipine 2.5 mg daily for better BP control
-Keep temporary PW another day
-D/C cordis
-Will discuss OAC if further a-fib
-Monitor hyponatremia 127, was 131 yesterday. Cont. diuresis, fluid restriction
-Encourage use of IS
-OOB into chair/Ambulate
-PT/OT evaluating for eventual Home vs acute rehab
Assessment / Plan
-
Assessment:
- MVCAD including LM disease- s/p CABG x 4 (JERZY to LAD, GSV to D1, GSV to LPLB, GSV to RPDA); ELAA (35mm AtriClip) by Dr. Martinez on 01/31/25, pod #4
- Post-AUSTYN: Normal biventricular function, no significant VHD, CHERRI confirmed excluded
- Pt. w/ preoperative sinus bradycardia in 40s under GA, postoperatively continued bradycardia in 30s - bipolar V-wire placed - paced at 70.
- HTN/HLD
- R elbow fx, s/p ORIF 2009
- R rotator cuff tear 2009
- L1-L2 hemilaminectomy, L2-L5 laminectomy/redo laminectomy L2-L3
- Discectomy [address] Irving Meehan
- b/l cataract
- Former smoker
- Sober since 30s
- Acute postop blood loss anemia
- Acute postop atelectasis
- Acute postop hypovolemia with subsequent hypervolemia
- Acute postop hyponatremia
- Acute postop a-fib with RVR
- Acute postop bradycardia requiring pacing with temporary PW @ backup of 35 bpm. while on
Discussed patient care with: Cardiology, Nursing, Respiratory Therapy, Pharmacy and Care Team
Subjective
-
Date of Service: February 03, 2025
Pt c/o mild incisional pain, otherwise feels well
Objective Data
-
Lab Results
02/03/25 04:11
02/03/25 04:11
PT 16.5 Sec (11.4-14.6) H 01/31/25 13:53
INR 1.28 01/31/25 13:53
APTT 30.1 Sec (23.4-35.0) 01/31/25 13:53
Vital Signs
Vital Signs
Temp Pulse Resp BP Pulse Ox
97.4 F 84 16 134/64 97
02/03/25 20:00 02/03/25 20:15 02/03/25 15:00 02/03/25 20:15 02/03/25 20:00
CT Intake/Output/Weight
02/03/25 02/03/25 02/04/25
06:59 18:59 06:59
Intake Total 96 / 945.8 1210 / 1210
Output Total 1000 / 2575 800 / 800
Balance -904 / -1629.2 410 / 410
SaO2: 97 (RA)
Physical Exam
-
General: Awake, Oriented and AOx3
Cardiovascular: Regular rate & rhythm, No Murmurs, No Rub and No Gallop
Respiratory: Decreased Breath Sounds (at bases, otherwise clear)
Sternum: Stable
Incision: Clean, Dry, Intact and Dressing Intact
Extremities: Other (+trace edema)
Data Reviewed
-
Lab Results: Results Reviewed
Medications: Active Meds Reviewed
Chest X-Ray: Report Reviewed and Image Reviewed
ECG: Report Reviewed and Image Reviewed
[2025-02-04] VITALS (42 sets, daily range): BP systolic 90–168; BP diastolic 56–114; PULSE 85–94; O2SAT 96; BMI 33.9
[2025-02-04 04:01] LABS: Hematocrit 29.4 % (39.0-52.0); Hemoglobin 9.9 g/dL (13.0-18.0); Mean Corp Hgb Conc. 33.7 g/dL (33.0-37.0); Mean Corpuscular Volume 76.8 fL (80.0-94.0); Platelet Count 233 10^3/uL (130-400); Red Cell Dist. Width 14.1 % (11.5-14.5)
[2025-02-04 04:02] LABS: Blood Urea Nitrogen 27 mg/dl (9-20); Calcium 8.7 mg/dl (8.4-10.2); Carbon Dioxide 26 mmol/L (22-30); Chloride 98 mmol/L (98-107); Estimated Creatinine Clearance 67 ml/min; Glucose 106 mg/dl (70-99); Magnesium 2.0 mg/dl (1.6-2.3); Potassium 3.5 mmol/L (3.5-5.1); Sodium 127 mmol/L (135-145); eGFR > 60.00
[2025-02-04] MEDS: KCL 40 MEQ PO (05:34)
[2025-02-04] MEDS: TYLENOL 975 MG PO ×3 (05:35→21:03)
--- NOTE | 2025-02-04 07:59 | W.PN.CARDCBS ---
Today's Communication / Plan
-
Low-dose amiodarone
Low-dose metoprolol
DAPT therapy for grafts
Any further AF would initiate oral anticoagulation
Impression / Plan
-
PCP: Jazmin Kim
Laborer Stores: Philip Macedo
Impression:
Abnormal stress test performed in preparation for knee replacement
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
CABG x 4 (JERZY to LAD, GSV to D1, GSV to LPLB, GSV to RPDA) and ELAA 01/31/25
HTN
HLD
AUSTYN 01/31/2025 postop: 55%. Mild MR. Trace TR/PI. Left atrial appendage adequately excluded by 2D echo and color-flow interrogation.
Echo 01/30/2025: EF 59%. No regional wall motion abnormality. No significant valve disease.
Cardiac catheterization 01/30/2025: LM: 75 distal stenosis with dampening on engagement. LAD: 70% ostial. Diffuse luminal luminal irregularities throughout vessel. Circumflex: Ostial 95% stenosis. OM1 80% ostial stenosis. RCA: Diffuse mid 30%
stenosis followed by focal 60% mid stenosis. 50% stenosis just prior to the crux and 40% mid PDA stenosis.
Lexiscan nuclear stress test 01/15/2025: Moderate size moderate severity apical, mid anterior and mid anteroseptal reversible defects which may be consistent with ischemia. TDI 1.2. EF 58%
Assessment:
-Underwent left heart catheterization 01/30/2025 which was performed for abnormal stress test and showed multivessel coronary disease
-Patient subsequently underwent CABG x 4 (JERZY to LAD, GSV to D1, GSV to LPLB, GSV to RPDA) and ELAA) 01/31/25
-extubated and off pressors
- Sinus in the 80s on amiodarone 200 twice daily with low-dose metoprolol added back for higher blood pressures. For hypertension probably would add or increase amlodipine instead of increasing metoprolol dose at this point. I do not see an
indication for permanent pacing. Currently on DAPT therapy for graft patency. With any further atrial fibrillation would support NOAC therapy
- ECG findings noted
-Chest x-ray 02/02/2025 with improving left lower lobe atelectasis and small right pleural effusion
- Presurgery hemoglobin 13.0. Current hemoglobin 9.6. Continue to monitor and trend.
- Continue asa, Plavix for graft patency
-Weight up 10 pounds since admission. Got IV Lasix 40 mg 02/02/2025. Continue to monitor and trend weight, renal function and electrolytes
-LDL on 01/31 was 89. Now on high intensity statin. Will need repeat lipids 2 to 3 months as outpatient
-continue post op care
- Discussed with CT surgical team
Progress Note - Laborer Stores
Subjective
Date of Service: February 04, 2025
Rhythms improving
Objective
Labs:
02/04/25 03:35
02/04/25 03:35
Labs
Hgb 9.9 g/dL (13.0-18.0) L 02/04/25 03:35
Hct 29.4 % (39.0-52.0) L 02/04/25 03:35
Plt Count 233 10^3/uL (130-400) D 02/04/25 03:35
PT 16.5 Sec (11.4-14.6) H 01/31/25 13:53
INR 1.28 01/31/25 13:53
APTT 30.1 Sec (23.4-35.0) 01/31/25 13:53
Sodium 127 mmol/L (135-145) L 02/04/25 03:35
Potassium 3.5 mmol/L (3.5-5.1) 02/04/25 03:35
BUN 27 mg/dl (9-20) H 02/04/25 03:35
Creatinine 1.1 mg/dL (0.7-1.3) 02/04/25 03:35
Glucose 106 mg/dl (70-99) H 02/04/25 03:35
Vital Signs and I&O:
Vital Signs
Temp Pulse Resp BP Pulse Ox
97.6 F 83 16 142/62 97
02/04/25 03:39 02/04/25 07:15 02/03/25 15:00 02/04/25 07:00 02/04/25 03:37
Vital Signs
Temp Pulse Resp BP Pulse Ox
97.6 F 83 16 142/62 97
02/04/25 03:39 02/04/25 07:15 02/03/25 15:00 02/04/25 07:00 02/04/25 03:37
Intake & Output
02/02/25 02/03/25 02/04/25 02/05/25
06:59 06:59 06:59 06:59
Intake Total 825.0 / 835.0 945.8 / 945.8 1570 / 1570
Output Total 1095 / 1135 2575 / 2575 1600 / 1600
Balance -270.0 / -300.0 -1629.2 / -1629.2 -30 / -30
Physical Exam
Physical Exam
����Physical Exam
���������������������General:��no apparent distress, not acutely ill
���������������������������Neck:��supple. no meningeal signs. normal psoterior pharynx
������������������������
���������������������������Heart:��s1/s2 regular rate and rhythm, no murmur. equal radial pulses.
��������������������������Lungs: ��no acute respiratory distress. clear bilaterally
����������������������Abdomen:�normal bowel sounds. not tender. no CVAT
��������������������������Neuro:��alert and oriented. no focal neurological deficits
������������������������������Skin: ��no rash
�����������������������Psychiatric:�well kept. interactive and cooperative
�����������������������Extremities:��no edema. no calf tenderness. negative homans. good distal pulses
��
�
[2025-02-04] MEDS: NEURONTIN 100 MG PO ×3 (08:06→21:02)
[2025-02-04] MEDS: KCL 20 MEQ PO ×2 (08:07→20:24)
[2025-02-04] MEDS: LASIX 40 MG IV ×2 (08:07→15:08)
[2025-02-04] MEDS: PACERONE 200 MG PO ×2 (08:07→20:25)
[2025-02-04] MEDS: PROTONIX 40 MG PO (08:08)
[2025-02-04] MEDS: BACTROBAN 2% OINTMENT 1 APPLIC NASAL (08:08)
[2025-02-04] MEDS: TOPROL XL 12.5 MG PO ×2 (08:08→20:27)
[2025-02-04] MEDS: LOW STRENGTH ASPIRIN 81 MG PO (08:08)
[2025-02-04] MEDS: SENOKOT 8.6 MG PO (08:08)
[2025-02-04] MEDS: NORVASC 2.5 MG PO (08:08)
[2025-02-04] MEDS: PLAVIX 75 MG PO (08:08)
[2025-02-04] MEDS: LIDOCAINE 4% PATCH TOPICAL (10:49)
[2025-02-04] MEDS: NSS IV (13:57)
--- NOTE | 2025-02-04 17:00 | PTCARENOTE ---
Assumed care of pt from night RN. AAOx3 throughout shift. NSR on tele, HR 80-90s. SpO2 95% on room air. VSS. Cordis removed today. Vaseline Gauze, dry 4x4 gauze and Tegaderm dressing applied to R IJ. CDI. Epicardial V wire insulated. Procedural
sites intact. Assessment documented. Pt OOB to chair, call cordoba in reach.
[2025-02-04] MEDS: LIPITOR 80 MG PO (17:21)
[2025-02-04 18:06] LABS: Blood Urea Nitrogen 29 mg/dl (9-20); Calcium 8.9 mg/dl (8.4-10.2); Carbon Dioxide 27 mmol/L (22-30); Chloride 97 mmol/L (98-107); Estimated Creatinine Clearance 61 ml/min; Glucose 119 mg/dl (70-99); Potassium 4.2 mmol/L (3.5-5.1); Sodium 133 mmol/L (135-145); eGFR > 60.00
--- NOTE | 2025-02-04 18:30 | PTCARENOTE ---
Pt with brief episode of A.fib RVR at 1752. Converted back to NSR without intervention. BP 128/67 MAP 87. Pt asymptomatic. CTNP aware.
[2025-02-04] MEDS: CORDARONE 103 MG IV (19:10)
[2025-02-04] MEDS: CORDARONE 259 MG IV (19:23)
--- NOTE | 2025-02-04 19:38 | PTCARENOTE ---
During change of shift report pt noted to be back in Afib RVR with HR 130s-140s. Pt asymptomatic and hemodynamically stable. CTNP aware. IV amio bolus and infusion ordered. Pt assisted back to bed with two RNs. New R AC PIV and L hand PIV placed. IV
amio bolus infused. Continuous IV amio gtt now infusing 1mg/min (33.3mL/hr). 0.[address] Pt remains in Afib at this time with HRs 90s-100s. Remains hemodynamically stable. Report given to material handler 1st shift RN.
[2025-02-04] MEDS: REMOVE LIDOCAINE PATCH 1 PATCH REMOVE (20:27)
[2025-02-04] MEDS: MAGNESIUM OXIDE 400 MG PO (21:02)
--- NOTE | 2025-02-04 23:24 | PTCARENOTE ---
Addendum entered by Shahrzad Wooten RN 02/05/25 06:25:
0300: pt sleeping soundly, respirations observed. monitor worker in place, NSR, AAAA. Pt's personal belongings and call cordoba within reach. no needs at this time.
Original Note:
1900: Bedside report received from Aime. Pt found to be in afib with elevated ventricular rate (see chart for tele strips). Provider notified, orders placed. Pt moved to the bed. Family, at bedside, updated on plan of care. Amio IV stated ( see mar
for details). 2 additional IVs inserted. monitor worker in place with AAAA. Pacer wires insulated. Belongings and call cordoba within reach. Bed in the lowest position. All needs met a this time. See EMR for assessment.
2300: Pt converted to NSR (see chart for tele strips). Provider made aware and pt updated. monitor worker in place, AAAA. Call cordoba and personal belongings within reach. All needs met at this time.
[2025-02-05] VITALS (21 sets, daily range): BP systolic 111–157; BP diastolic 54–109; BMI 33.6
--- NOTE | 2025-02-05 03:42 | W.PN.CT ---
Today's Communication / Plan
-
Plan:
-No major issues overnight. Hemodynamically and neurologically intact
-Afib with RVR on POD#2, A-fib again with RVR x 4hr last night. Currently on Amiodarone gtt
-No further conversion pauses, will likely require DOAC/NOAC. Currently on ASA/Plavix so will need to d/c ASA to avoid triple therapy
-On PO Amiodarone @ 200 mg BID per Cardiology/EP. Will increase Toprol XL from 12.5 Qdaily to 25 Qdaily
-Keep temporary PW another day
-Monitor hyponatremia 127, was 131 yesterday. Cont. diuresis, fluid restriction
-Will replete K of 3.9
-Encourage use of IS
-OOB into chair/Ambulate
-PT/OT evaluating, recommend acute rehab ([facility]) placement
Assessment / Plan
-
Assessment:
- MVCAD including LM disease- s/p CABG x 4 (JERZY to LAD, GSV to D1, GSV to LPLB, GSV to RPDA); ELAA (35mm AtriClip) by Dr. Martinez on 01/31/25, pod #5
- Post-AUSTYN: Normal biventricular function, no significant VHD, CHERRI confirmed excluded
- Pt. w/ preoperative sinus bradycardia in 40s under GA, postoperatively continued bradycardia in 30s - bipolar V-wire placed - paced at 70.
- HTN/HLD
- R elbow fx, s/p ORIF 2009
- R rotator cuff tear 2009
- L1-L2 hemilaminectomy, L2-L5 laminectomy/redo laminectomy L2-L3
- Discectomy [address] Irving Meehan
- b/l cataract
- Former smoker
- Sober since 30s
- Severe OA of right knee, awaiting surgery
- Acute postop blood loss anemia
- Acute postop atelectasis
- Acute postop hypovolemia with subsequent hypervolemia
- Acute postop hyponatremia
- Acute postop a-fib with RVR
- Acute postop bradycardia requiring pacing with temporary PW @ backup of 35 bpm. while on
Discussed patient care with: Cardiology, Nursing, Respiratory Therapy, Pharmacy and Care Team
Subjective
-
Date of Service: February 05, 2025
Pt c/o mild incisional pain, otherwise feels well
Objective Data
-
PT 16.5 Sec (11.4-14.6) H 01/31/25 13:53
INR 1.28 01/31/25 13:53
APTT 30.1 Sec (23.4-35.0) 01/31/25 13:53
Vital Signs
Vital Signs
Temp Pulse Resp BP Pulse Ox
98.6 F 64 18 136/59 93
02/05/25 00:00 02/05/25 03:15 02/04/25 15:15 02/05/25 03:00 02/05/25 03:15
CT Intake/Output/Weight
02/04/25 02/04/25 02/05/25
06:59 18:59 06:59
Intake Total 360 / 1570 240 / 240
Output Total 800 / 1600 1200 / 1600 400 / 1600
Balance -440 / -30 -1200 / -1360 -160 / -1360
SaO2: 93 (RA)
Physical Exam
-
General: Awake, Oriented and AOx3
Cardiovascular: Regular rate & rhythm, No Murmurs, No Rub and No Gallop
Respiratory: Decreased Breath Sounds (at bases, otherwise clear)
Sternum: Stable
Incision: Clean, Dry, Intact and Dressing Intact
Extremities: Other (+trace edema)
Data Reviewed
-
Lab Results: Results Reviewed
Medications: Active Meds Reviewed
Chest X-Ray: Report Reviewed and Image Reviewed
ECG: Report Reviewed and Image Reviewed
[2025-02-05 03:55] LABS: Hematocrit 27.9 % (39.0-52.0); Hemoglobin 9.5 g/dL (13.0-18.0); Mean Corp Hgb Conc. 34.1 g/dL (33.0-37.0); Mean Corpuscular Volume 78.2 fL (80.0-94.0); Platelet Count 270 10^3/uL (130-400); Red Cell Dist. Width 13.9 % (11.5-14.5)
[2025-02-05] MEDS: CORDARONE 259 MG IV (04:10)
[2025-02-05 04:26] LABS: Blood Urea Nitrogen 27 mg/dl (9-20); Calcium 8.2 mg/dl (8.4-10.2); Carbon Dioxide 29 mmol/L (22-30); Chloride 99 mmol/L (98-107); Estimated Creatinine Clearance 61 ml/min; Glucose 110 mg/dl (70-99); Magnesium 2.0 mg/dl (1.6-2.3); Potassium 3.8 mmol/L (3.5-5.1); Sodium 132 mmol/L (135-145); eGFR > 60.00
[2025-02-05] MEDS: TYLENOL 975 MG PO ×3 (05:08→22:07)
[2025-02-05] MEDS: KCL 40 MEQ PO ×3 (05:09→19:21)
[2025-02-05] MEDS: CALCIUM GLUCONATE 100 IV (06:30)
[2025-02-05] MEDS: PLAVIX PO (06:33)
[2025-02-05] MEDS: LASIX 40 MG IV ×2 (08:29→16:41)
[2025-02-05] MEDS: NEURONTIN 100 MG PO ×3 (08:30→22:07)
[2025-02-05] MEDS: PROTONIX 40 MG PO (08:30)
[2025-02-05] MEDS: PACERONE 200 MG PO ×2 (08:30→19:21)
[2025-02-05] MEDS: LOW STRENGTH ASPIRIN 81 MG PO (08:30)
[2025-02-05] MEDS: TOPROL XL 25 MG PO (08:30)
[2025-02-05] MEDS: MAGNESIUM OXIDE 400 MG PO ×2 (08:31→19:21)
[2025-02-05] MEDS: NORVASC 2.5 MG PO (08:31)
[2025-02-05] MEDS: LIDOCAINE 4% PATCH TOPICAL (08:33)
[2025-02-05] MEDS: ELIQUIS 5 MG PO ×2 (09:36→19:20)
[2025-02-05] MEDS: MILK OF MAGNESIA 30 ML PO (11:28)
--- NOTE | 2025-02-05 11:33 | CM ---
"Chart reviewed. Patient is independent of ADLS, lives with his in a [address] [facility], [facility], ambulates with a SPC. Patient originally planned for a TKA on 02/12. PT evaluation recommending Acute Rehab. Patient and agreeable. Referral sent to "Chirag"Ilan. Plan is for the patient to go to [facility] when medically stable. CM to follow"
--- NOTE | 2025-02-05 12:29 | W.PN.CARDCBS ---
Addendum entered and electronically signed by Andrew Elizabeth DO 02/05/25 14:34:
I saw and examined the patient.
The Quilt Maker's note was reviewed and I agree with the note.
Comment:
Plan:
Continue CT surgical care
Eliquis anticoagulation for PAFib, currently in sinus
Continue amiodarone
Continue diuresis
Original Note:
Today's Communication / Plan
-
-started eliquis for recurrent afib, now back in NSR
-cont Amio
-cont diuresis
Impression / Plan
-
PCP: Jazmin Kim
Collection Manager: Philip Macedo
Impression:
Abnormal stress test performed in preparation for knee replacement
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
CABG x 4 (JERZY to LAD, GSV to D1, GSV to LPLB, GSV to RPDA) and ELAA 01/31/25
HTN
HLD
AUSTYN 01/31/2025 postop: 55%. Mild MR. Trace TR/PI. Left atrial appendage adequately excluded by 2D echo and color-flow interrogation.
Echo 01/30/2025: EF 59%. No regional wall motion abnormality. No significant valve disease.
Cardiac catheterization 01/30/2025: LM: 75 distal stenosis with dampening on engagement. LAD: 70% ostial. Diffuse luminal luminal irregularities throughout vessel. Circumflex: Ostial 95% stenosis. OM1 80% ostial stenosis. RCA: Diffuse mid 30%
stenosis followed by focal 60% mid stenosis. 50% stenosis just prior to the crux and 40% mid PDA stenosis.
Lexiscan nuclear stress test 01/15/2025: Moderate size moderate severity apical, mid anterior and mid anteroseptal reversible defects which may be consistent with ischemia. TDI 1.2. EF 58%
Assessment:
POD # 5 s/p CABG x 4 (JERZY to LAD, GSV to D1, GSV to LPLB, GSV to RPDA) and ELAA 01/31/25
- Had LHC 01/30/2025 which was performed for abnormal stress test and showed multivessel coronary disease
- Had recurrent afib overnight, ~2 hrs. Restarted on IV Amiodarone. Currently in NSR HRs 60-80s. Given recurrent afib start NOAC. Pt has been started on Eliquis 5 mg bid
- Presurgery hemoglobin 13.0. Current hemoglobin 9.5. Continue to monitor and trend.
- Continue asa for graft patency, Plavix stopped since started Eliquis
-Weight was up 10 pounds postoperatively but now downtrending. Continues on Lasix 40 mg IV bid. Continue to monitor and trend weight, renal function and electrolytes
-LDL on 01/31 was 89. Now on high intensity statin. Will need repeat lipids 2 to 3 months as outpatient
-continue post op care
- Discussed with CT surgical nurse
-cont FRONT DESK AGENT Irbesartan 150 mg daily
-cont FRONT DESK AGENT Amlodipine 2.5 mg daily
Progress Note - Collection Manager
Subjective
Date of Service: February 05, 2025
feels well
had recurrent afib overnight
Objective
Labs:
02/05/25 03:46
02/05/25 03:46
Labs
Hgb 9.5 g/dL (13.0-18.0) L 02/05/25 03:46
Hct 27.9 % (39.0-52.0) L 02/05/25 03:46
Plt Count 270 10^3/uL (130-400) 02/05/25 03:46
PT 16.5 Sec (11.4-14.6) H 01/31/25 13:53
INR 1.28 01/31/25 13:53
APTT 30.1 Sec (23.4-35.0) 01/31/25 13:53
Sodium 132 mmol/L (135-145) L 02/05/25 03:46
Potassium 3.8 mmol/L (3.5-5.1) 02/05/25 03:46
BUN 27 mg/dl (9-20) H 02/05/25 03:46
Creatinine 1.2 mg/dL (0.7-1.3) 02/05/25 03:46
Glucose 110 mg/dl (70-99) H 02/05/25 03:46
Vital Signs and I&O:
Vital Signs
Temp Pulse Resp BP Pulse Ox
97.7 F 68 16 131/81 96
02/05/25 08:23 02/05/25 09:31 02/05/25 08:23 02/05/25 09:00 02/05/25 10:09
Vital Signs
Temp Pulse Resp BP Pulse Ox
97.7 F 68 16 13181 96
02/05/25 08:23 02/05/25 09:31 02/05/25 08:23 02/05/25 09:00 02/05/25 10:09
Intake & Output
02/03/25 02/04/25 02/05/25 02/06/25
06:59 06:59 06:59 06:59
Intake Total 945.8 / 945.8 1570 / 1570 240 / 240
Output Total 2575 / 2575 1600 / 1600 1600 / 1600
Balance -1629.2 / -1629.2 -30 / -30 -1360 / -1360
Physical Exam
Physical Exam
GEN: No distress, awake, Ox3
HEENT: supple, anicteric, mmm
LUNGS: CTA, no wheezes/rales
CV: Reg, S1/S2, no murmur
ABD: soft, BS+, NT/ND
EXT: No edema,wearing compression stocking
NEURO: Gross non-focal
SKIN: sternal incision with drsg
--- NOTE | 2025-02-05 13:00 | CM ---
Pricing on Eliquis 5mg BID through the patient's [employer], ID# [id number], is covered and will cost the patient $444. Patient is still in his deductible stage and once me he is responsible for 19% of cost. Patient and agreeable. Gave
patient's the free 30 day coupon.
[2025-02-05] MEDS: DULCOLAX 10 MG RECTAL (14:12)
--- NOTE | 2025-02-05 15:50 | PTCARENOTE ---
Amio gtt infusing. Pt remains in NSR w/ rate in 60s. OOB to chair for several hours. Ambulating to bathroom and in room using walker - standby assist. Pt still has not had bowel movement - given milk of magnesia then Dulcolax w/o results. Pt is
passing flatus, good appetite, no abd discomfort.
[2025-02-05] MEDS: LIPITOR 80 MG PO (17:51)
[2025-02-05] MEDS: REMOVE LIDOCAINE PATCH 1 PATCH REMOVE (19:21)
--- NOTE | 2025-02-05 20:00 | PTCARENOTE ---
report received from previous RN, walking rounds done. pt AAOx4, pt denies any pain at this time. VSS. NSR on monitor, 60s. +peripheral pulses. epicardial wires in place and insulated. Amio gtt d/c'd per protocol. B/L breath sounds present. POX 95%
on room air. bowel sounds present. pt voids without difficulty. all surgical sites stable. PIV x2 intact and patent. see worklist for full assessment, VS, and interventions.
--- NOTE | 2025-02-06 03:45 | W.PN.CT ---
Addendum entered and electronically signed by Marj Allen PA-C 02/06/25 12:12:
Response to query:
1.) Post operative cardiogenic shock
2.) Acute pulmonary insufficiency following surgery
3.) Post operative volume overload
Original Note:
Today's Communication / Plan
-
Plan:
-No major issues overnight. Hemodynamically and neurologically intact
-Afib with RVR on POD#2, A-fib again with RVR x 4hrs POD#4. Completed Amiodarone gtt
-Started on Eliquis yesterday 02/05, also on ASA; Plavix d/c'd
-On PO Amiodarone @ 200 mg BID per Cardiology/EP. Tolerating increase Toprol XL 25 Qdaily
-D/C temporary PW (cut)
-Monitor hyponatremia 131. Cont. diuresis, fluid restriction
-Encourage use of IS
-OOB into chair/Ambulate/PT-OT follow up
-[facility] placement today
Assessment / Plan
-
Assessment:
- MVCAD including LM disease- s/p CABG x 4 (JERZY to LAD, GSV to D1, GSV to LPLB, GSV to RPDA); ELAA (35mm AtriClip) by Dr. Martinez on 01/31/25, pod #6
- Post-AUSTYN: Normal biventricular function, no significant VHD, CHERRI confirmed excluded
- Pt. w/ preoperative sinus bradycardia in 40s under GA, postoperatively continued bradycardia in 30s - bipolar V-wire placed - paced at 70.
- HTN/HLD
- R elbow fx, s/p ORIF 2009
- R rotator cuff tear 2009
- L1-L2 hemilaminectomy, L2-L5 laminectomy/redo laminectomy L2-L3
- Discectomy [address] Irving Meehan
- b/l cataract
- Former smoker
- Sober since 30s
- Severe OA of right knee, awaiting surgery
- Acute postop blood loss anemia
- Acute postop atelectasis
- Acute postop hypovolemia with subsequent hypervolemia
- Acute postop hyponatremia
- Acute postop a-fib with RVR
- Acute postop bradycardia requiring pacing with temporary PW @ backup of 35 bpm. while on
Discussed patient care with: Cardiology, Nursing, Respiratory Therapy, Pharmacy and Care Team
Subjective
-
Date of Service: February 06, 2025
Pt c/o mild incisional pain, otherwise feels well
Objective Data
-
PT 16.5 Sec (11.4-14.6) H 01/31/25 13:53
INR 1.28 01/31/25 13:53
APTT 30.1 Sec (23.4-35.0) 01/31/25 13:53
Vital Signs
Vital Signs
Temp Pulse Resp BP Pulse Ox
98 F 65 17 138/58 95
02/05/25 14:15 02/05/25 22:00 02/05/25 14:15 02/05/25 19:12 02/05/25 20:00
CT Intake/Output/Weight
02/05/25 02/05/25 02/06/25
06:59 18:59 06:59
Intake Total 240 / 240 240 / 240
Output Total 400 / 1600 400 / 400
Balance -160 / -1360 240 / -160 -400 / -160
SaO2: 95 (RA)
Physical Exam
-
General: Awake, Oriented and AOx3
Cardiovascular: Regular rate & rhythm, No Murmurs, No Rub and No Gallop
Respiratory: Decreased Breath Sounds (at bases, otherwise clear)
Sternum: Stable
Incision: Clean, Dry, Intact and Dressing Intact
Extremities: Other (+trace edema)
Data Reviewed
-
Lab Results: Results Reviewed
Medications: Active Meds Reviewed
Chest X-Ray: Report Reviewed and Image Reviewed
ECG: Report Reviewed and Image Reviewed
[2025-02-06 05:33] VITALS: BP 148/60
--- NOTE | 2025-02-06 05:40 | PTCARENOTE ---
no changes in assessment, pt VSS. SR 60s. POX 98% on room air. AM labs drawn and sent. all surgical sites stable.
[2025-02-06 05:50] VITALS: BMI 33.0
[2025-02-06] MEDS: TYLENOL 975 MG PO (05:53)
[2025-02-06 05:58] LABS: Hematocrit 28.9 % (39.0-52.0); Hemoglobin 9.7 g/dL (13.0-18.0); Mean Corp Hgb Conc. 33.6 g/dL (33.0-37.0); Mean Corpuscular Volume 79.0 fL (80.0-94.0); Platelet Count 305 10^3/uL (130-400); Red Cell Dist. Width 14.2 % (11.5-14.5)
[2025-02-06 06:19] LABS: Blood Urea Nitrogen 25 mg/dl (9-20); Calcium 8.6 mg/dl (8.4-10.2); Carbon Dioxide 31 mmol/L (22-30); Chloride 98 mmol/L (98-107); Estimated Creatinine Clearance 60 ml/min; Glucose 102 mg/dl (70-99); Magnesium 2.1 mg/dl (1.6-2.3); Potassium 4.2 mmol/L (3.5-5.1); Sodium 131 mmol/L (135-145); eGFR > 60.00
--- NOTE | 2025-02-06 08:00 | PTCARENOTE ---
pt received from previous RN, oriented, OOB in chair. SR on the monitor, HR 60s. V wire insulated. SBP 130s. palpable pulses. JAZZMINE stockings in place. pt on RA, 97-98% POX. lungs clear, diminished in bases. IS encouraged. no cough or SOB. pt abdomen
s/n, denies n/v. +BS, +flatus, pt states has soft BM overnight. voids in urinal. diet tolerated well. ambulates w/ assist and RW. sternal Aquacel intact, chest tube site c/d/i. R groin site intact. R knee incision GROUP EXERCISE MANAGER and R lower leg puncture GEORGINA.
PIV x2. see worklist for VS, I&O, and assessment.
[2025-02-06 08:43] VITALS: BP 132/61
[2025-02-06] MEDS: LIDOCAINE 4% PATCH TOPICAL (09:03)
[2025-02-06] MEDS: LASIX 40 MG PO (09:04)
[2025-02-06] MEDS: ELIQUIS 5 MG PO (09:04)
[2025-02-06] MEDS: NEURONTIN 100 MG PO (09:05)
[2025-02-06] MEDS: NORVASC 2.5 MG PO (09:05)
[2025-02-06] MEDS: PACERONE 200 MG PO (09:05)
[2025-02-06] MEDS: PROTONIX 40 MG PO (09:05)
[2025-02-06] MEDS: MAGNESIUM OXIDE 400 MG PO (09:05)
[2025-02-06] MEDS: LOW STRENGTH ASPIRIN 81 MG PO (09:05)
[2025-02-06] MEDS: TOPROL XL 25 MG PO (09:32)
[2025-02-06 09:48] VITALS: BP 132/87
[2025-02-06 10:01] VITALS: BP 132/87; PULSE 71; O2SAT 97
[2025-02-06 10:13] VITALS: BP 132/87; PULSE 71; O2SAT 97
--- NOTE | 2025-02-06 10:25 | W.DCSUMMARY ---
Discharge Summary
Discharge Data
Date of Admission: 01/30/25
Date of Discharge: 02/06/25
Total time spent discharging patient (in min): 40
-
Pending Results: No
Hospital Course
Primary care physician:
Dr. Jenny Patel MD.
Outpatient mounter smoking pipe:
Dr. Philip Macedo MD.
Inpatient consultants:
[facility]
Procedures:
1. Coronary artery bypass grafting x 4 (SCOTT�LAD, GSV�diagonal, GSV�LPLB, GSV�RPDA) 01/31/25
2. Exclusion of left atrial appendage (#35 AtriClip)
Primary Diagnosis:
1. Left main multivessel coronary artery disease
2. Hypertension
3. Hyperlipidemia
4. Right elbow fracture�open reduction internal fixation (2009)
5. Right rotator cuff tear (2009)
6. L2-5 laminectomy, L1-L2 hemilaminectomy, L2-L3 facetectomy, followed by redo laminectomy, redo lumbar discectomy (2018, Dr. Irving Meehan)
7. Bilateral cataract
Secondary Diagnoses:
1. 1. Left main multivessel coronary artery disease
2. Hypertension
3. Hyperlipidemia
4. Right elbow fracture�open reduction internal fixation (2009)
5. Right rotator cuff tear (2009)
6. L2-5 laminectomy, L1-L2 hemilaminectomy, L2-L3 facetectomy, followed by redo laminectomy, redo lumbar discectomy (2018, Dr. Irving Meehan)
7. Bilateral cataract
HPI:
Patient is an 79-year-old male who presented to [facility] for elective left heart catheterization following an abnormal stress test. Subsequent cardiac catheterization revealed left main multivessel coronary artery disease.
Consult was placed to cardiothoracic surgery and the patient was admitted for further workup and observation. Patient was seen by attending physician and CT surgery and deemed an appropriate candidate to undergo coronary artery revascularization.
Hospital course:
Patient presented to the operating room on the date described above, for the procedure described above. Patient tolerated procedure well. He was from cardiopulmonary bypass. He remained intubated. He was transported to the
cardiovascular intensive care unit where he underwent his postoperative recovery. Perioperatively he was found to be bradycardic in the 30s and postoperatively he was bradycardic in the 50s. He was also on norepinephrine for blood pressure support
insulin and Precedex infusion. He was successfully extubated on postoperative day 0.
On postoperative day #1 patient had a near syncopal event getting out of bed. Norepinephrine was resumed at 1, amiodarone and beta-bin were held for sinus bradycardia and later resumed that afternoon. Levo was successfully weaned off. Insulin
drip was discontinued and patient was placed on sliding scale. PT and OT were consulted.
On postoperative day #2 the patient's mediastinal and pleural chest tubes were removed without issues. He was gently diuresed with Lasix 40 mg IV x 2. Patient had an episode of new postoperative atrial fibrillation treated with an amiodarone bolus
followed by drip. Patient's Hutchison was discontinued without issues.
On postoperative day #3 the patient's home Norvasc was resumed. He converted to sinus rhythm in the clockmaker apprentice. Amiodarone was changed to p.o. twice daily per cardiology DrFranky Jackson. Amiodarone drip was discontinued. And the patient continue
diuresis with Lasix twice daily.
On postoperative day #4 the patient's home beta-bin was resumed. Shortly after he had a burst of atrial fibrillation and beta-bin was increased along with a rebolus of amiodarone followed by a drip. JAZZMINE stockings were placed on the
patient, patient had multiple bowel movements and senna was placed on hold.
On postoperative day #5 amiodarone drip was discontinued. He continued diuresis with Lasix twice daily. Then Eliquis was started due to multiple episodes of postoperative atrial fibrillation.
On postoperative day #6 the patient remained in sinus rhythm overnight. He was seen on morning rounds with attending physician. Patient was medically cleared to be discharged to [facility].
Home medication changes:
Please see home med changes listed below:
Discharge Plan
-
Patient Disposition: Home (Routine Discharge)
Discharge Diagnosis/Procedures: CABG x 4,left atrial appendage clip (01/31/25)
Condition: Good
Diet: Low Cholesterol and Low Sodium
Activity: No strenuous activity
Driving Restrictions: Not until seen by your Dr
Bathing Restrictions: OK to Shower
Other Services: Cardiac Rehab
Specialty Instructions: Weigh Daily- Call MD for wt gain/loss 3 lbs overnight/5 lbs in 1 week
Activity Restrictions/Additional Instructions:
ACTIVITY:
-No strenuous activity: no heavy lifting, pushing, pulling anything over 15 pounds for one month
-continue to use stairs as tolerated
DRIVING RESTRICTIONS:
-No driving for one month or until approved by your surgeon
WOUND CARE:
-Shower daily. Use soap & water.
-No lotions, creams or powders on incision area.
DIET:
-continue a low fat/low cholesterol diet.
-IF you are diabetic, continue carb controlled diet.
CARDIAC REHAB:
-Please make appointment to start in 5-6 weeks with your local hospital program. (See Cardiac Rehabilitation Discharge Booklet).
SPECIALTY INSTRUCTIONS:
-Weigh yourself daily. Call your physician for any weight gain/loss of 3 lbs overnight or 5 lbs in one week.
-REPORT any clicking noise or uneven appearance of your sternum to your surgeon immediately.
-If you smoke, you are instructed to quit. The [place] smoking hotline phone number is [phone]
Stand Alone Forms: DC Instructions- Cath/EP Lab
Referrals:
CT Transitional Care Nurse [Outside]
[facility]. Cardiac Rehab [Outside] - 03/20/25 8:30 am
Referral Note: Cardiac Rehab Orientation appointment is on March 20, 2025 at 8:30am.
The Cardiac Rehab gym is located on the first floor of the [facility].
Radha Del Valle PA-C [Specified Professional Personl, Cardiology] - 03/13/25 12:40 pm
Greg Gil MD [Active, Pulmonary Medicine] - in six weeks
Philip Macedo MD [Active, Cardiology]
Jazmin Kim MD [Family Provider, Internal Medicine]
Eloy Martinez MD [Active, Cardiac Surgery] - 02/27/25 2:30 pm
Prescriptions:
New
cyclobenzaprine 10 mg Tablet
5 mg PO Q8HPRN PRN (Reason: muscle spasm) Qty: 10 0RF
furosemide 40 mg Tablet
40 mg PO DAILY Qty: 0 0RF
acetaminophen 325 mg Tablet
650 mg PO Q4HPRN PRN (Reason: mild pain,headache,temp >101F ) Qty: 0 0RF
amiodarone [Pacerone] 200 mg Tablet
200 mg PO BID Qty: 0 0RF
amlodipine 2.5 mg Tablet
2.5 mg PO DAILY Qty: 0 0RF
potassium chloride [Klor-Con M20] 20 mEq Tablet,Er Particles/Crystals
40 meq PO PRN PRN (Reason: serum K+ less than 4 mmol/L) Qty: 0 0RF
metoprolol succinate 25 mg Tablet Extended Release 24 Hr
25 mg PO DAILY Qty: 0 0RF
oxycodone 5 mg Tablet
2.5 mg PO Q4HPRN PRN (Reason: moderate to severe pain) Qty: 15 0RF
Eliquis 5 mg Tablet
5 mg PO BID Qty: 0 0RF
pantoprazole 40 mg Tablet,Delayed Release (Dr/Ec)
40 mg PO DAILY Qty: 0 0RF
Continued
amlodipine 2.5 mg Tablet
2.5 mg PO DAILY
aspirin 81 mg Tablet,Delayed Release (Dr/Ec)
81 mg PO DAILY
simvastatin 40 mg Tablet
40 mg PO DAILY
Discontinued
irbesartan 150 mg Tablet
150 mg PO DAILY
Care Plan Goals
Care Plan Goals:
Problem: Readiness for enhanced knowledge related to diagnosis and treatment plan
Goal: Understand your diagnosis and treatment plan needs, including medications if applicable.
Instructions: Know your diagnosis, underlying causes and treatment plan options, including medications if applicable. Consult with your health care team to learn about your diagnosis and treatment plan, including medications if applicable.
Discharge Date and Time
Print Language: GREEK
--- NOTE | 2025-02-06 10:36 | PN.CDI ---
CDI
- -
CDI:
Physician Documentation Request
Admit Date: 01/30/25 10:21
Dear Doctor/CVPA,
Please review the following and provide your response in the progress notes.
Current documentation includes a diagnosis of hypotension.
Clinical Indicators:
Pt admitted with CAD for Heart cath /CABG X4
Pt care note 02/01@0230, ' Levo gtt off at 0204 for BP 133 systolic, MAP 71.....At ~0223 Levo gtt resumed at 1 mcg due to BP down to 103/39 (57) off levo gtt via L radial A-line. Discussed with JAMIL Rodriguez. HR noted to be 48-50 bpm, SR. Levophed
gtt resumed at 1 mcg/min at 0223. ...'
Pt care note 02/01 @ 0650, ' When getting into chair, pt felt weak. BP dropped to 68 systolic.... Pt reclined in chair. Levo gtt started at 4 mcg/min. BP up to 78, then 100's, increasing to 120's systolic. Pt remained awake, talking through entire
transfer. Dr. Martinez in to see pt and aware of hypotension when sitting in chair. Levo gtt titrated down to 2 mcg/min. BP now 128/58 via cuff,....'
Pt care note 02/01 @ 1121, ' Levo is off, When pt stood BP dropped to 70's and HR to 50's Pt recovered quickly when sat in chair...'
02/01/25
06:26 02/01/25
06:27 02/01/25
06:27
Blood pressure 88/70
MAP (S-Axrc-Queqanz Monitor) 44 45
02/01/25
06:28 02/01/25
09:20 02/01/25
09:20
Blood pressure 95/58
MAP (S-Uqiq-Qeuzluu Monitor) 47 57
Please clarify which of the following is the most likely etiology of the above symptoms and treatment rendered/IV Levophed :
Cardiogenic shock
Hypovolemic shock
Hypotension only
Other ( please specify)
Use of terms such as suspected, likely, concern for, or probable (associated with a specific diagnosis that is being evaluated, monitored, or treated as if it exists) are acceptable and can be coded in the inpatient setting, when documented at the
time of discharge.
Thank you,
Joy Charles RN
CDI Specialist
[place] [facility]
Please use your independent medical judgment in providing your response.
--- NOTE | 2025-02-06 11:01 | PN.CDI ---
CDI
- -
CDI:
Physician Documentation Request
Admit Date: 01/30/25 10:21
Dear Doctor/CVPA,
Please review the following and provide your response in the progress notes.
Clinical Indicators:
Pt admitted with CAD for Heart cath /CABG X4
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
Pt care note 02/01 @ 1622,' Pt VS WNL was able to wean off oxygen...'
Pt care note 02/01@ 2200,' Pt on room air in chair. Sats 92%. Increased to 4L/NC in bed. Sats 97-98%. BBS present. Decreased B bases. CDB, IS encouraged....'
Pt care note 02/02 @0753,'SaO2 @ 97% on 2lnc....'
Pt care note 02/05 @ 1999,' POX 95% on room air....'
01/31/25
18:00 01/31/25
20:45 01/31/25
23:00
Nasal Cannula flow liters per minute 5 4 3
02/01/25
09:20 02/01/25
10:00 02/01/25
10:08
Nasal Cannula flow liters per minute 3 4
02/01/25
11:00 02/01/25
11:50 02/01/25
12:18
Resp Rate 28 30
Nasal Cannula flow liters per minute 2
02/01/25
13:18 02/01/25
14:48 02/01/25
15:44
Resp Rate 31 33 38
02/01/25
16:00 02/01/25
16:31 02/01/25
17:24
Resp Rate 35 31
Nasal Cannula flow liters per minute 2
02/01/25
18:38 02/01/25
20:00 02/02/25
03:36
Resp Rate 36
Nasal Cannula flow liters per minute 4 4
Clarify which of the following accurately represents the patient's respiratory status following surgery:
Acute pulmonary insufficiency (following surgery)
Hypoxia only
Other ( please specify)
Additional information for Pulmonary Insufficiency:
Consider when patients require intermediate school teacher oxygen therapy postoperatively
Weaned off oxygen initially then requiring supplemental oxygen
No other definitive diagnosis to support the need for oxygen (COPD exac, CHF etc.)
Unable to wean from vent
When criteria for respiratory failure not present
May extend stay or require additional resources; may need home O2
Use of terms such as suspected, likely, concern for, or probable (associated with a specific diagnosis that is being evaluated, monitored, or treated as if it exists) are acceptable and can be coded in the inpatient setting, when documented at the
time of discharge.
Thank you,
Joy Charles RN
CDI Specialist
[facility] [facility]
Please use your independent medical judgment in providing your response.
--- NOTE | 2025-02-06 11:24 | PN.CDI ---
CDI
- -
CDI:
Physician Documentation Request
Admit Date: 01/30/25 10:21
Dear Doctor/ CVPA,
Please review the following and provide your response in the progress notes.
Clinical Indicators:
Pt admitted with CAD for Heart cath /CABG X4
[facility] 01/31, ' Overall LVEF is approximately 55-60%...'
CT surgery note 02/01, ' -wt is up 10 lbs- diurese...'
Cardiology note 02/02, ' -Weight up 10 pounds since admission. Got IV Lasix 40 mg 02/02/2025. Continue to monitor and trend weight, renal function and electrolytes...'
CXR 02/02, ' Band of probable atelectasis in the left lower lobe is improving.There is a probable small right pleural effusion...'
CT surgery note 02/05, ' Respiratory: Decreased Breath Sounds (at bases...Extremities: Other (+trace edema)...'
Discharge summary On postoperative day #3....... And the patient continue diuresis with Lasix twice daily....On postoperative day #5 amiodarone drip was discontinued. He continued diuresis with Lasix twice daily...'
Please provide in your notes the diagnosis associated with the use of IV Lasix :
Acute Diastolic CHF
Volume Overload only
Other ( please specify)
Use of terms such as suspected, likely, concern for, or probable (associated with a specific diagnosis that is being evaluated, monitored, or treated as if it exists) are acceptable and can be coded in the inpatient setting, when documented at the
time of discharge.
Thank you,
Joy Charles RN
CDI Specialist
[place] [facility]
Please use your independent medical judgment in providing your response.
[2025-02-06 12:31] VITALS: BP 141/58
--- NOTE | 2025-02-06 12:40 | PTCARENOTE ---
pt VSS, no changes in assessment. V wire cut by [employer] Pelayo. OOB to chair for lunch. report called to Pilar @ [facility].
--- NOTE | 2025-02-06 13:19 | W.PN.UPDATE ---
Update Note
Progress Note Update
No pacing required. One bipolar ventricular wire clipped to skin level.
[2025-02-06] MEDS: DULCOLAX 10 MG PO (13:56)
--- NOTE | 2025-02-06 14:44 | PTCARENOTE ---
pt requested PO Dulcolax despite having BM, pt states, 'feels like there's more in there'. TITLE EXAMINER aware, Dulcolax given. surgical dressings removed. IV and tele dc'd. per TITLE EXAMINER, keep CT sutures in place. update called to Pilar in [facility]. pt
transported w/ belongings via stretcher, w/ patient.
== END 2025-02-06 14:42 | DRG 233 ==
LOC: CVICU 10:21
PROVIDERS: Anesthesiology; Clinical Nurse Specialist Acute Care; Nurse Practitioner; Physician Assistant Medical; ADMITTING PHYSICIAN Internal Medicine Interventional Cardiology; ATTENDING PHYSICIAN Thoracic Surgery (Cardiothoracic Vascular Surgery); CONSULT PHYSICIAN Internal Medicine; FAMILY PHYSICIAN Internal Medicine
PROC: B2111ZZ Fluoroscopy of Multiple Coronary Arteries using Low Osmolar Contrast (ICD-10-PCS; 2025-01-30)
PROC: B2151ZZ Fluoroscopy of Left Heart using Low Osmolar Contrast (ICD-10-PCS; 2025-01-30)
PROC: 4A023N7 Measurement of Cardiac Sampling and Pressure, Left Heart, Percutaneous Approach (ICD-10-PCS; 2025-01-30)
PROC: 06BP4ZZ Excision of Right Saphenous Vein, Percutaneous Endoscopic Approach (ICD-10-PCS; 2025-01-31)
PROC: 02L70CK Occlusion of Left Atrial Appendage with Extraluminal Device, Open Approach (ICD-10-PCS; 2025-01-31)
PROC: 02100ZC Bypass Coronary Artery, One Artery from Thoracic Artery, Open Approach (ICD-10-PCS; 2025-01-31)
PROC: B24BZZ4 Ultrasonography of Heart with Aorta, Transesophageal (ICD-10-PCS; 2025-01-31)
PROC: 5A1221Z Performance of Cardiac Output, Continuous (ICD-10-PCS; 2025-01-31)
PROC: 021209W Bypass Coronary Artery, Three Arteries from Aorta with Autologous Venous Tissue, Open Approach (ICD-10-PCS; 2025-01-31)
DX: I25.10 Atherosclerotic heart disease of native coronary artery without angina pectoris (principal); J95.1 Acute pulmonary insufficiency following thoracic surgery; T81.11XA Postprocedural cardiogenic shock, initial encounter; D62 Acute posthemorrhagic anemia; J98.11 Atelectasis; E87.1 Hypo-osmolality and hyponatremia; I10 Essential (primary) hypertension; E78.00 Pure hypercholesterolemia, unspecified; I77.810 Thoracic aortic ectasia; H26.9 Unspecified cataract; R00.1 Bradycardia, unspecified; I48.91 Unspecified atrial fibrillation; E87.70 Fluid overload, unspecified; E86.1 Hypovolemia; Y83.2 Surgical operation with anastomosis, bypass or graft as the cause of abnormal reaction of the patient, or of later complication, without mention of misadventure at the time of the procedure; Z79.82 Long term (current) use of aspirin; Z79.899 Other long term (current) drug therapy; Z87.891 Personal history of nicotine dependence
CPT/HCPCS: 36415; 71045; 71046; 71250; 80048; 80053; 80061; 81003; 81015; 82248; 82330; 82565; 82805; 82810; 82947; 82962; 83036; 83735; 84132; 84302; 84520; 85014; 85018; 85025; 85027; 85049; 85610; 85730; 86850; 86900; 86901; 86920; 93005; 93306; 93312; 93320; 93325; 93458; 93880; 94002; 97110; 97116; 97129; 97163; 97167; 97530; 97535; 99152; 99153; C1769; C1894; J0282; Q9967